=== PATIENT | male | born 1940 | race Caucasian/White ===

== ENCOUNTER 2016-04-23 07:01 | Outpatient (CLI) | payer MEDICARE ==
[~2016-04-23] VITALS: Ht 177.8 cm; Wt 97.5 kg
[~2016-04-23 07:01] MED LIST: ALBUTEROL2.5 MG/3 M UPD; BAYER CHEWABLE81 MG PO; BENZONATATE200 MG PO; BROVANA15 MCG/2 M INH; CARDURA2 MG PO; CARDURA4 MG PO; CORDARONE200 MG PO; DIFLUCAN100 MG PO; FLORAJEN3 CAPS460 MG PO; FLUTICASONE PRO16 GM NASAL; GLUCOTROL 5 MG T5 MG PO; HUMULIN R100 U/ML SC; MIRAPEX1 MG PO; MOBIC7.5 MG PO; NORVASC5 MG PO; NYSTATIN15 GM TOPICAL; OXYCODONE HCL5 MG PO; PACERONE200 MG PO; PREDNISONE20 MG PO; PRILOSEC20 MG PO; PRINIVIL10 MG PO; PRINIVIL20 MG PO; PROSCAR5 MG PO; PULMICORT0.5 MG/21 UPD; SINGULAIR10 MG PO; VIBRAMYCIN 100100 MG PO; ZYRTEC10 MG PO
[2016-04-23] MEDS ORDERED: PROPAFENONE HC150 MG PO (07:54)
[2016-04-23 08:03] VITALS: BP 170/100; Ht 177.8 cm; Wt 97.5 kg
[2016-04-23 08:11] LABS: BASOPHILS 0.7 % (0.0-2.0); EOSINOPHILS 6.7 % (0-7); HEMATOCRIT 34.4 % (42.0-54.0); HEMOGLOBIN 11.2 g/dL (13.5-17.5); IMMATURE GRANULOCYTES 0.3 % (0-5); LYMPHOCYTES 24.1 % (15-50); MCH 28.4 pg (26.0-34.0); MCHC 32.6 g/dL (31.0-37.0); MCV 87.3 fL (80.0-100.0); MEAN PLATELET VOLUME 9.2 fL (7.4-10.4); MONOCYTES 8.7 % (2-11); NEUTROPHILS 59.5 % (40-80); RBC 3.94 10x6/uL (4.20-6.10); RDW 13.3 % (11.5-14.5); WBC 6.7 10x3/uL (4.8-10.8)
[2016-04-23 08:23] LABS: ANION GAP 12.2 mmol/L (8-16); CALCIUM 8.7 mg/dL (8.5-10.1); CARBON DIOXIDE 24.9 mmol/L (21.0-32.0); CREATININE - SERUM 2.8 mg/dL (0.6-1.3); PLATELET COUNT 205 10x3/uL (130-400); POTASSIUM - SERUM 4.1 mmol/L (3.5-5.1)
[2016-04-23 08:24] LABS: APTT 29.2 SECONDS (22.8-39.4); INR 1.03 (0.85-1.17); PROTIME 13.3 SECONDS (11.6-15.0)
--- NOTE | 2016-04-23 10:27 | NUR ---
0910 RETURNED FROM RADIOLOGY; BIOPSY SITE CDI;V/S MONITOR IN PALCE AND V/S RECORDED
--- NOTE | 2016-04-23 11:25 | NUR ---
1110 DISCHARGE INSTRUCTIONS REVIEWED WITH PATIENT; VERBALIZED UNDERSTANDING
== END 2016-04-23 11:15 | disposition home or self-care (01) ==
LOC: D.OPS 07:01 → D.SP 09:00 → D.OPS 11:15 → D.SP 04-26 10:00
PROVIDERS: Specialist
DX: D64.9 Anemia, unspecified (principal); D84.9 Immunodeficiency, unspecified

== ENCOUNTER → 2016-05-11 10:15 | Outpatient (CLI) | payer MEDICARE ==
[2016-04-23 08:03] VITALS: BMI 30.9
[~2016-05-11 10:15] MED LIST changes: +PROPAFENONE HC150 MG PO
== END | disposition home or self-care (01) ==
LOC: D.RAD 08:45
DX: C90.00 Multiple myeloma not having achieved remission (principal)

== ENCOUNTER 2016-05-16 09:10 | Outpatient (CLI) | payer MEDICARE ==
[~2016-05-16] VITALS: Ht 177.8 cm; Wt 97.7 kg
[2016-05-16 09:58] LABS: BASOPHILS 0.8 % (0.0-2.0); EOSINOPHILS 3.5 % (0-7); HEMATOCRIT 35.4 % (42.0-54.0); HEMOGLOBIN 11.5 g/dL (13.5-17.5); IMMATURE GRANULOCYTES 0.2 % (0-5); LYMPHOCYTES 23.7 % (15-50); MCHC 32.5 g/dL (31.0-37.0); MCV 86.1 fL (80.0-100.0); MEAN PLATELET VOLUME 9.6 fL (7.4-10.4); MONOCYTES 7.3 % (2-11); NEUTROPHILS 64.5 % (40-80); PLATELET COUNT 192 10x3/uL (130-400); RBC 4.11 10x6/uL (4.20-6.10); RDW 14.1 % (11.5-14.5); WBC 6.6 10x3/uL (4.8-10.8)
[2016-05-16 10:08] VITALS: BP 152/90; Ht 177.8 cm; Wt 97.7 kg
[2016-05-16 10:18] LABS: APTT 28.8 SECONDS (22.8-39.4); INR 0.98 (0.85-1.17); PROTIME 12.9 SECONDS (11.6-15.0)
[2016-05-16 10:23] LABS: ANION GAP 14.3 mmol/L (8-16); CALCIUM 8.7 mg/dL (8.5-10.1); CARBON DIOXIDE 24.8 mmol/L (21.0-32.0); CREATININE - SERUM 2.6 mg/dL (0.6-1.3); POTASSIUM - SERUM 5.1 mmol/L (3.5-5.1)
== END 2016-05-16 15:33 | disposition home or self-care (01) ==
LOC: D.OPS 09:10 → D.RAD 10:00 → D.OPS 10:00 → D.SP 10:00 → D.RAD 11:00 → D.OPS 15:33
PROVIDERS: Internal Medicine Hematology & Oncology; Radiology Diagnostic Radiology
DX: N26.9 Renal sclerosis, unspecified (principal); I12.9 Hypertensive chronic kidney disease with stage 1 through stage 4 chronic kidney disease, or unspecified chronic kidney disease; N18.9 Chronic kidney disease, unspecified

== ENCOUNTER → 2016-06-13 08:29 | Outpatient (CLI) | payer MEDICARE ==
[2016-05-16 10:08] VITALS: BMI 30.9
--- NOTE | 2016-06-19 14:38 | EC ---
PATIENT:ANNA LANTIGUA JR DATE OF SERVICE: 06/13/16 SEX: M MEDICAL RECORD: [id number] DATE OF : 38 LOCATION:[facility] AGE OF PATIENT: 76 ADMISSION DATE: 06/13/16 REFERRING PHYSICIAN: INTERPRETING PHYSICIAN: RAN SCHUMACHER MD ECHOCARDIOGRAM REPORT ECHO CHARGES 4 ECHO COMPLETE CLINICAL DIAGNOSIS: CATLEMANS DISEASE/SOB/PRE CHEMO ASSESSMENT HX OF PACER/AFIB/HTN ECHOCARDIOGRAPHIC MEASUREMENTS (adult normal given) AC root (d.<3.7cm) 4.5 LV Septum d (<1.2 cm> 1.5 Valve Excursion 1.9 LV Septum (systole) 2.3 Left Atria (s.<4.0cm> 4.7 LVPW d(<1.2cm) 1.8 RV (d.<2.3cm) 3.5 LVPW (sytole) 2.0 LV diastole(<5.6CM) 4.8 MV E-F(>70mm/sec) LV systole 2.8 LVOT Diameter 2.2 MV exc.(>10mm) 1.5 Est.ejection fraction (50-75%) Pericardial Effusion N DOPPLER: LVIT A 74.0 E 49.0 LA RVSP 30 LVOT 122 AOP1/2T 495 Asc. Ao 146 RVOT 75 RA PA 115 AV Gradient Peak 8.49 AV Mean 3.95 AV Area 3.7 MV Gradient Peak 3.55 MV Mean 0.83 MV Area COMMENTS: Data Migration Lead: Cara ROBERTSON Investment Fund Manager:Yuko Schumacher TAPE# PACS DATE OF SERVICE: 06/13/2016 FINDINGS: 1. Left ventricular chamber size is within normal limits. Left ventricular systolic function is normal. Overall ejection fraction estimated at 55%. 2. Left atrium is enlarged at 4.7 cm. Right atrium and right ventricular chamber sizes are as well mildly dilated. 3. Valvular structures have normal structure and motion. 4. Doppler interrogation reveals mild aortic insufficiency, mild mitral ECHOCARDIOGRAM REPORT [id number] ANNA LANTIGUA JR regurgitation, mild tricuspid regurgitation. No other valvular insufficiency or stenosis and pulmonary systolic pressure is normal estimated 30 mmHg. 5. No evidence of pericardial effusion or left ventricular thrombus. TRANSINT:[id number] Voice Confirmation ID: [id number] DOCUMENT ID: [id number] RAN SCHUMACHER MD at 1438 CC: [id number] DICTATION DATE: 06/13/16 1704 RESEARCH BIOSTATISTICIAN: 06/14/16 0850 DEP CLI 06/13/16 [id number] [place] [address]
== END | disposition home or self-care (01) ==
LOC: D.ECHO 08:29
DX: D47.Z2 Castleman disease (principal)

== ENCOUNTER → 2016-06-15 13:56 | Outpatient (CLI) | payer MEDICARE ==
[2016-05-16 10:08] VITALS: BMI 30.9
== END | disposition home or self-care (01) ==
LOC: D.CT 13:56
DX: N18.4 Chronic kidney disease, stage 4 (severe) (principal)

== ENCOUNTER 2016-08-29 18:32 | Emergency (ER) | payer MEDICARE ==
[2016-05-16 10:08] VITALS: BMI 30.9
[2016-08-29 19:52] LABS: BASOPHILS 1.2 % (0-2); EOSINOPHILS 9.2 % (0-7); HEMATOCRIT 37.3 % (42.0-54.0); IMMATURE GRANULOCYTES 0.3 % (0-5); LYMPHOCYTES 39.5 % (15-50); MCH 29.3 pg (26.0-34.0); MCHC 32.2 g/dL (31.0-37.0); MCV 91.2 fL (80.0-100.0); MEAN PLATELET VOLUME 10.9 fL (7.4-10.4); MONOCYTES 10.1 % (2-11); NEUTROPHILS 39.7 % (40-80); RBC 4.09 10x6/uL (4.20-6.10); RDW 18.4 % (11.5-14.5); WBC 3.4 10x3/uL (4.8-10.8)
[2016-08-29 20:09] LABS: PLATELET COUNT 132 10x3/uL (130-400)
[2016-08-29 20:13] LABS: ALBUMIN 3.1 g/dL (3.4-5.0); ANION GAP 15.4 mmol/L (8-16); BILIRUBIN - TOTAL 0.53 mg/dL (0.2-1.3); CALCIUM 8.1 mg/dL (8.5-10.1); CARBON DIOXIDE 20.9 mmol/L (21.0-32.0); CREATININE - SERUM 2.5 mg/dL (0.6-1.3); POTASSIUM - SERUM 4.3 mmol/L (3.5-5.1); PROTEIN - SERUM 5.7 g/dL (6.4-8.2)
== END 2016-08-29 22:20 | disposition home or self-care (01) ==
LOC: D.ER 18:32
PROVIDERS: Emergency Medicine
DX: M79.661 Pain in right lower leg (principal); I82.90 Acute embolism and thrombosis of unspecified vein; I10 Essential (primary) hypertension

== ENCOUNTER → 2016-09-26 12:30 | Outpatient (CLI) | payer MEDICARE ==
[2016-05-16 10:08] VITALS: BMI 30.9
== END | disposition home or self-care (01) ==
LOC: D.US 12:30
DX: I82.401 Acute embolism and thrombosis of unspecified deep veins of right lower extremity (principal); R60.0 Localized edema

== ENCOUNTER 2017-01-07 06:10 | Outpatient (CLI) | payer MEDICARE ==
[2017-01-07] MEDS ORDERED: BETAPACE AF80 MG PO (07:03)
[2017-01-07] MEDS ORDERED: OMEPRAZOLE20 M1 PO (07:06)
[2017-01-07] MEDS ORDERED: [UNRECOGNIZED DRUG - OTHER] PO (07:08)
[2017-01-07 07:15] VITALS: BP 122/62; BMI 28.6
[2017-01-07 07:24] LABS: BASOPHILS 2.9 % (0-2); EOSINOPHILS 8.8 % (0-7); HEMATOCRIT 33.4 % (42.0-54.0); LYMPHOCYTES 36.8 % (15-50); MCH 31.4 pg (26.0-34.0); MCHC 32.9 g/dL (31.0-37.0); MCV 95.4 fL (80.0-100.0); MEAN PLATELET VOLUME 9.6 fL (7.4-10.4); MONOCYTES 18.7 % (2-11); NEUTROPHILS 32.8 % (40-80); RDW 18.6 % (11.5-14.5)
[2017-01-07 07:40] LABS: ANION GAP 13.8 mmol/L (8-16); CALCIUM 8.3 mg/dL (8.5-10.1); CARBON DIOXIDE 22.2 mmol/L (21.0-32.0); CREATININE - SERUM 2.2 mg/dL (0.6-1.3); PLATELET COUNT 78 10x3/uL (130-400); WBC 1.7 10x3/uL (4.8-10.8)
[2017-01-07 07:42] LABS: APTT 27.4 SECONDS (22.8-39.4); INR 1.02 (0.85-1.17); PROTIME 13.3 SECONDS (11.6-15.0)
--- NOTE | 2017-01-07 10:40 | NUR ---
0920-RECD FROM I/R POST CT GUIDED BONE MARROW BIOPSY. VITAL SIGNS RECORDED ON POST PROCEDURE SHEET. 0930-REGULAR BREAKFAST SERVED. REVERSE ISOLATION FOLLOWED DUE TO LOW WBC. FAMILY EDUCATIED. 1005-IV D/C, UP TO BATHROOM AND DRESSING. 1015-DISCHARGE INSTRUCTIONS REVIEWED. 1030-D/C VIA WHEELCHAIR WITH AND DAUGHTER.
== END 2017-01-07 10:30 | disposition home or self-care (01) ==
LOC: D.OPS 06:10 → D.RAD 07:45 → D.OPS 07:45 → D.CT 08:00 → D.OPS 10:30
PROVIDERS: General Practice
DX: C90.00 Multiple myeloma not having achieved remission (principal); Z01.812 Encounter for preprocedural laboratory examination

== ENCOUNTER → 2017-03-11 12:48 | Outpatient (CLI) | payer MEDICARE ==
[~2017-03-11 12:48] MED LIST changes: +BETAPACE AF80 MG PO; +OMEPRAZOLE20 M1 PO; +[UNRECOGNIZED DRUG - OTHER] PO
== END | disposition home or self-care (01) ==
LOC: D.RT 12:48
DX: R91.1 Solitary pulmonary nodule (principal)

== ENCOUNTER → 2017-06-03 13:33 | Outpatient (CLI) | payer MEDICARE | END | disposition home or self-care (01) | LOC: D.US 13:33 | DX: E05.90 Thyrotoxicosis, unspecified without thyrotoxic crisis or storm (principal) ==

== ENCOUNTER → 2017-07-11 09:50 | Outpatient (CLI) | payer MEDICARE | END | disposition home or self-care (01) | LOC: D.NM 09:50 | DX: E04.1 Nontoxic single thyroid nodule (principal) ==

== ENCOUNTER → 2017-08-16 11:25 | Outpatient (CLI) | payer MEDICARE | END | disposition home or self-care (01) | LOC: D.RAD 11:25 | DX: C90.00 Multiple myeloma not having achieved remission (principal); E85.89 Other amyloidosis; D63.1 Anemia in chronic kidney disease ==

== ENCOUNTER → 2017-09-30 12:23 | Outpatient (CLI) | payer MEDICARE | END | disposition home or self-care (01) | LOC: D.RT 12:23 | DX: J84.10 Pulmonary fibrosis, unspecified (principal) ==

== ENCOUNTER 2018-04-18 08:59 | Outpatient (CLI) | payer MEDICARE ==
[~2018-04-18] VITALS: Ht 177.8 cm; Wt 90.9 kg
--- NOTE | ~2018-04-18 | HEMODYNAMI ---
PATIENT:ANNA LANTIGUA JR MEDICAL RECORD: [id number] : 38 [id number] ADMISSION DATE: 04/18/18 Generatedon:04/18/201813:16 Patient name: ANNA LANTIGUA Patient #: [id number] SSN: : 1940 Date of study: 04/18/2018 Page: Of Hemodynamic Procedure Report Patient Data Patient Demographics Procedure consent was obtained First Name: ANNA Gender: Male Last Name: Suffix: [facility] Initial: N : 1940 Patient #: [id number] Age: 77 year(s) Race: Unknown Additional ID: [id number] Contact details [address]: [address] [place] [address] ROAD State: [place] City: [place] Zip code: [address] Past Medical History Allergies Allergen Reaction Date Comments Reported Sulfa drugs 04/18/2018 Admission Admission Data Admission Date: 04/18/2018 Admission Time: 8:59 Procedure Procedure Types Cath Procedure Peripheral Cath Diagnostic Procedure Security Professional Peripheral Procedures Abd/Extremity Extremities Bilat Lower Extremity Venography Procedure Description Procedure Date Procedure Date: 04/18/2018 Procedure Start Time: 12:27 Procedure Staff Name Function Koffi Meyers MD Performing Physician Lashaun Barakat RT Experimental Rocket Sled Mechanic Yisel Hopkins RN Nurse Juve Joseph RT Scrub Procedure Data Cath Procedure Fluoroscopy Diagnostic fluoroscopy Total fluoroscopy Time: 6.8 time: 6.8 min min Diagnostic fluoroscopy Total fluoroscopy dose: 534 dose: 534 mGy mGy Contrast Material Contrast Material Type Amount (ml) Isovue 300 10 Diagnostic catheters Device Type Used For End Catheter Placement DIAGNOSTIC IMT 5Fr Catheter ([id number]) Procedure Medications Medication Administration Route Dosage Lidocaine 1% added to field 20 Heparin Flush Bag added to field 3 bags (1000units/500ml NS) Oxygen etCO2 Nasal cannula 3 l/min Versed I.V. 1 mg Fentanyl I.V. 50 mcg Hemodynamics Rest Heart Rate: 70 (bpm) Snapshots Pre Cath Intra NCS Post Cath Vital Signs Time Heart Resp SPO2 etCO2 NIBP (mmHg) Rhythm Pain Sedation Rate (ipm) (%) (mmHg) Status Level (bpm) 12:02:11 59 7 97 28.8 164/91(136) NSR 0 (11) 10(A) , No pain 12:06:23 60 10 98 31.9 159/86(126) NSR 0 (11) 10(A) , No pain 12:11:22 61 15 97 30.4 Measuring NSR 0 (11) 10(A) , No pain 12:12:46 60 14 98 29.6 Time NSR 0 (11) 10(A) Exceeded , No pain 12:15:44 59 16 95 30.3 No Cuff NSR 0 (11) 9(A) , No pain 12:16:25 60 13 96 31.8 No Cuff NSR 0 (11) 9(A) , No pain 12:19:13 62 14 96 30.3 Aborted NSR 0 (11) 9(A) , No pain 12:20:59 60 12 96 31.1 154/86(103) NSR 0 (11) 9(A) , No pain 12:25:24 60 16 96 29.6 159/86(113) NSR 0 (11) 9(A) , No pain 12:29:42 60 22 95 32.6 148/79(99) NSR 0 (11) 8(A) , No pain 12:34:02 62 12 100 34.2 133/78(99) NSR 0 (11) 8(A) , No pain 12:38:16 63 10 100 33.4 130/80(98) NSR 0 (11) 8(A) , No pain 12:42:32 60 19 100 31.1 133/73(93) NSR 0 (11) 8(A) , No pain 12:46:46 55 12 100 32.6 126/71(97) NSR 0 (11) 8(A) , No pain 12:50:58 59 12 100 32.6 127/76(100) NSR 0 (11) 8(A) , No pain 12:55:12 59 12 100 31.1 129/73(87) NSR 0 (11) 8(A) , No pain 12:59:24 38 23 100 31.8 138/80(115) NSR 0 (11) 8(A) , No pain 13:03:38 63 15 100 28.1 131/78(97) NSR 0 (11) 8(A) , No pain 13:07:52 60 13 100 31.8 136/78(91) NSR 0 (11) 8(A) , No pain 13:12:08 60 13 100 30.3 134/79(91) NSR 0 (11) 8(A) , No pain Medications Time Medication Route Dose Verified Delivered Reason Notes Eff ectiveness by by 12:08:47 Lidocaine 1% added 20ml Koffi Rain for local to vial Mira Meyers anesthetic field MD MIRANDA 12:09:02 Heparin Flush added 3 Koffi Rain used for Bag to bags Mira Meyers procedure (1000units/500ml field MD MIARNDA NS) 12:09:16 Oxygen etCO2 3 Koffi Morillo Nasal l/min Mira Hopkins RN cannula 12:27:08 Versed I.V. 1 mg Koffi Morillo for Mira Hopkins RN sedation 12:27:19 Fentanyl I.V. 50 Koffi Yisel for mcg Mira Hopkins RN sedation Procedure Log Time Note 11:44:50 Use device set IR Diagnostic 11:44:52 Tegaderm 4 x 4 (1626W) opened to sterile field. 11:44:53 Sterile Angiographic Pack opened to sterile field. 11:44:54 Bag Decanter (2002S) opened to sterile field. 11:44:55 BENTSON 145cm wire ([id number]) opened to sterile field. 11:44:56 TUBING Contrast Injection High Pressure (VOG491O) opened to sterile field. 11:44:57 TUBING Contrast Injection High Pressure (GLH933X) opened to sterile field. 11:44:58 SHEATH 5FR [place] (MYL331) opened to sterile field. 11:44:59 STOPCOCK 3-Way Large Bore ([id number]) opened to sterile field. 11:44:59 Micropuncture VSI 4FR kit opened to sterile field. 11:49:41 Time tracking: Regular hours (M-F 7:00 - 5:00) 11:54:06 Plan of Care:Hemodynamics will remain stable., Cardiac rhythm will remain stable., Comfort level will be maintained., Respiratory function will remain adequate., Patient/ family verbilizes understanding of procedure., Procedure tolerated without complication., Recovers from procedure without complications.. 11:54:15 Patient received from Outpatients to IR Alert and oriented. Tansferred to table in Supine position. 11:54:20 Signed procedure consent form obtained from patient. 11:54:40 H&P Date Dictated: 04/18/2018 Within 30 days and on chart.. 11:54:45 Pre-procedure instructions explained to patient. 11:54:46 Pre-op teaching completed and patient verbalized understanding. 11:54:47 Pre-op teaching completed and patient verbalized understanding. 11:54:55 Family in waiting room. 11:54:58 Patient NPO since Midnight. 11:55:24 Patient allergic to Sulfa drugs,amiodrone, reglan 11:56:21 Is the patient allergic to Iodine/contrast media? No. 11:56:24 Is patient on blood thinner?Yes 11:56:29 ACC The patient was administered the following blood thiners within the last 24 hours: ACCAspirin 11:56:34 Patient diabetic? No. 11:56:36 - 11:56:36 ----Pre-sedation anethsthesia assessment.---- 11:56:40 Previous problem with sedation/anesthesia? No ? 11:56:46 Snore? Yes 11:56:48 Sleep apnea? Yes 11:56:52 Deviated septum? No 11:56:56 Opens mouth fully? Yes 11:56:58 Sticks out tongue? Yes 11:57:02 Airway obstruction? No ? 11:57:08 Dentures? Yes ? 11:57:11 - 11:57:18 Pre procedure: right dorsailis pedis pulse Doppler 11:57:22 Pre procedure: left dorsailis pedis pulse Doppler 11:57:27 Pre procedure: right posterior tibial pulse Doppler 11:57:32 Pre procedure: left posterior tibial pulse Doppler 11:57:48 IV patent on arrival in left forearm with D5/.45%NaCl at KVO. 11:57:55 Right groin area was prepped with chlora-prep and draped in sterile fashion 11:58:05 Left groin area was prepped with chlora-prep and draped in sterile fashion 11:58:13 - 12:00:58 ECG and BP/O2 sat monitors applied to patient. 12:01:00 Vital chart was started 12:01:02 Full Disclosure recording started 12:01:03 - 12:01:54 Baseline sample Acquired. 12:08:47 Lidocaine 1% 20ml vial added to field was administered by Koffi pereyra MD; for local anesthetic; 12:09:02 Heparin Flush Bag (1000units/500ml NS) 3 bags added to field was administered by Koffi Meyers MD; used for procedure; 12:09:16 Oxygen 3 l/min etCO2 Nasal cannula was administered by Yisel Hopkins RN ; ; 12:26:00 - 12::15 Physician arrived 12:26:16 --------ALL STOP TIME OUT------ 12:26:17 Final Timeout: patient, procedure, and site verified with staff and physician. All members of the team are in agreement. 12:27:08 Versed 1 mg I.V. was administered by Yisel Hopkins RN; for sedation; 12:27:19 Fentanyl 50 mcg I.V. was administered by Yisel Hopkins RN; for sedation ; 12:27:35 Procedure started. 12:27:40 Local anesthetic to right femoral artery with Lidocaine 1% by Koffi Meyers MD.INITIAL ACCESS ONLY 12:27:44 Arterial access obtained using ultrasound guidance. 12:49:31 A DIAGNOSTIC IMT 5Fr Catheter ([id number]) was advanced over the wire an d used for . 13:02:28 GALVEZ 260 wire (Z66469) opened to sterile field. 13:03:09 EXOSEAL 5Fr (EX500) opened to sterile field. 13:04:59 Procedure ended.(Physican Out) 13:05:29 Fluoroscopy time 06.80 minutes. 13:05:35 Fluoroscopy dose: 534 mGy 13:05:35 Flurop Dose total: 534 13:05:39 Contrast amount:Isovue 300 10ml. 13:05:42 Procedure and supply charges have been captured, reviewed, submitted an d are correct. 13:16:03 Report given to Outpatients. 13:16:11 Patient transfered to Outpatients with Stretcher. 13:16:43 Vital chart was stopped Device Usage Item Name Manufacture Quantity Catalog Number Hospital Part Current Min imal Lot# / Charge Number Stock Stock Serial# Code Tegaderm 4 x 3M 1 1626W 192578 [id number] [id number] 5 4 (1626W) Sterile Cardinal 1 [id number] 261954 663018 5 Angiographic Health Pack Bag Decanter Microtek 1 2001S 807436 93650 234050 5 (2001S) Medical Inc. BENTSON 145cm [employer] 1 F58370 266105 737413 5 wire (Y16372) TUBING Merit 2 [id number] 136156 657465 753583 5 Contrast Medical Injection High Pressure (VDJ129Q) SHEATH 5FR Terumo 1 UAN390 899623 540230 168516 5 [place] (NIX459) STOPCOCK [employer] 1 A92140 521652 6507 570394 5 [id number] 3-Way Large Bore (E58040) Micropuncture VSI VASCULAR 1 7266V 098142 404188 5 VSI 4FR kit SOLUTIONS DIAGNOSTIC [place] 1 [id number] 147145 325869 14132 5 [id number] IMT 5Fr Scientific Catheter ([id number]) GALVEZ 260 [place] [employer] 1 Q77651 742587 66814 323704 5 [id number] wire (Y24511) EXOSEAL 5Fr Cardinal 1 EX500 605559 843760 894924 10 [id number] (EX500) Health Signature Audit [place] Stage Time Signature Unsigned Intra-Procedure 04/18/2018 Lashaun Barakat 1:16:37 PM RT(R) [id number] [place] [address]
[2018-04-18 09:31] LABS: BASOPHILS 0.6 % (0-2); EOSINOPHILS 2.9 % (0-7); HEMATOCRIT 35.5 % (42.0-54.0); HEMOGLOBIN 11.9 g/dL (13.5-17.5); LYMPHOCYTES 29.5 % (15-50); MCHC 33.5 g/dL (31.0-37.0); MCV 89.4 fL (80.0-100.0); MEAN PLATELET VOLUME 8.3 fL (7.4-10.4); RBC 3.97 10x6/uL (4.20-6.10); RDW 13.7 % (11.5-14.5); WBC 6.2 10x3/uL (4.8-10.8)
[2018-04-18 09:39] LABS: ANION GAP 12.7 mmol/L (8-16); CALCIUM 8.8 mg/dL (8.5-10.1); CARBON DIOXIDE 26.5 mmol/L (21.0-32.0); CREATININE - SERUM 2.3 mg/dL (0.6-1.3); POTASSIUM - SERUM 4.2 mmol/L (3.5-5.1)
[2018-04-18 09:40] LABS: INR 1.01 (0.85-1.17); PROTIME 12.8 SECONDS (11.6-15.0)
[2018-04-18 09:48] LABS: PLATELET COUNT 149 10x3/uL (130-400)
[2018-04-18] MEDS ORDERED: CARDIZEM LA240 MG PO (10:36)
[2018-04-18] MEDS ORDERED: BAYER CHEWABLE81 MG PO (10:37)
[2018-04-18 10:38] VITALS: BP 151/88; Ht 177.8 cm; Wt 90.9 kg
--- NOTE | 2018-04-18 17:15 | NUR ---
LEFT FOREARM PIV DC'D WITH TIP INTACT. DISCHARGE INSTRUCTIONS REVIEWED WITH PATIENT AND SPOUSE. PATIENT DRESSING IN PERSONAL CLOTHING WITH SPOUSE AND DAUGHTER'S ASSISTANCE
== END 2018-04-18 17:20 | disposition home or self-care (01) ==
LOC: D.SP 08:59
PROVIDERS: Radiology Diagnostic Radiology
DX: I70.213 Atherosclerosis of native arteries of extremities with intermittent claudication, bilateral legs (principal)

== ENCOUNTER → 2018-05-15 08:48 | Outpatient (CLI) | payer MEDICARE ==
[2018-04-18 10:38] VITALS: BMI 28.7
[~2018-05-15 08:48] MED LIST changes: +CARDIZEM LA240 MG PO
== END | disposition home or self-care (01) ==
LOC: D.RT 04-03 15:00 → D.CT 04-03 16:00 → D.RT 08:48
DX: J84.10 Pulmonary fibrosis, unspecified (principal)

== ENCOUNTER → 2018-12-11 12:11 | Outpatient (CLI) | payer MEDICARE ==
[2018-04-18 10:38] VITALS: BMI 28.7
== END | disposition home or self-care (01) ==
LOC: D.RT 12:11
PROVIDERS: ATTEND Internal Medicine Pulmonary Disease
DX: J84.10 Pulmonary fibrosis, unspecified (principal)

== ENCOUNTER → 2018-12-15 08:18 | Outpatient (CLI) | payer MEDICARE ==
[2018-04-18 10:38] VITALS: BMI 28.7
--- NOTE | 2018-12-16 13:38 | EC ---
PATIENT:ANNA LANTIGUA JR DATE OF SERVICE: 12/15/18 SEX: M MEDICAL RECORD: [id number] DATE OF : 38 [facility] AGE OF PATIENT: 78 ADMISSION DATE: 12/15/18 REFERRING PHYSICIAN: INTERPRETING PHYSICIAN: RAN SCHUMACHER MD ECHOCARDIOGRAM REPORT ECHO CHARGES 4 ECHO COMPLETE Date: 12/15/18 CLINICAL DIAGNOSIS: MYELOMA/CHEMO, HX: AFIB, HTN, COPD ECHOCARDIOGRAPHIC MEASUREMENTS (adult normal given) AC root (d.<3.7cm) 3.2 cm LV Septum d (<1.2 cm> 1.1 cm Valve Excursion 1.9 cm LV Septum (systole) 1.4 cm Left Atria (s.<4.0cm> 4.0 cm LVPW d(<1.2cm) 1.4 cm RV (d.<2.3cm) 3.7 cm LVPW (sytole) 1.6 cm LV diastole(<5.6CM) 6.7 cm MV E-F(>70mm/sec) cm LV systole 5.7 cm LVOT Diameter 2.1 cm MV exc.(>10mm) cm Est.ejection fraction (50-75%) % DOPPLER: LVIT cm/sec A 70 cm/sec E 36 cm/sec LA cm/sec RVSP 26.7 mmHg LVOT 94 cm/sec AOP1/2T m/s Asc. Ao 107 cm/sec RVOT 61 cm/sec RA cm/sec PA 65 cm/sec AV Gradient Peak 4.6 mmHg AV Mean 2.2 mmHg AV Area 3.2 cm MV Gradient Peak 2.5 mmHg MV Mean 1.0 mmHg MV Area cm COMMENTS: Senior Director Marketing: Hema TANG Retail Sales Lead: 1 Dr. Schumacher TAPE# PACS Pericardial Effusion N DATE OF SERVICE: 12/15/2018 PROCEDURE: Echocardiogram. FINDINGS: 1. Left ventricular chamber size is mildly dilated. Left ventricular systolic function is preserved at 55% to 60%. 2. Left atrium is within normal limits. Right atrium and right ventricular chamber sizes are mildly dilated. 3. Valvular structures have normal structure and motion. ECHOCARDIOGRAM REPORT [id number] ANNA LANTIGUA JR 4. Doppler interrogation reveals mild aortic insufficiency, mild mitral regurgitation, mild tricuspid regurgitation, no other valvular insufficiency or stenosis. Pulmonary systolic pressure is estimated at 27 mmHg. 5. No evidence of pericardial effusion or left ventricular thrombus. TRANSINT:[id number] Voice Confirmation ID: [id number] DOCUMENT ID: [id number] RAN SCHUMACHER MD at 1338 CC: [id number] DICTATION DATE: 12/15/18 1651 RECRUITMENT ADVERTISING MANAGER: 12/16/18 0126 DEP CLI 12/15/18 [id number] [place] [id number]
== END | disposition home or self-care (01) ==
LOC: D.ECHO 08:18
PROVIDERS: ATTEND Internal Medicine Medical Oncology
DX: I48.91 Unspecified atrial fibrillation (principal); I10 Essential (primary) hypertension; J44.9 Chronic obstructive pulmonary disease, unspecified

== ENCOUNTER → 2018-12-17 10:04 | Outpatient (CLI) | payer MEDICARE ==
[2018-04-18 10:38] VITALS: BMI 28.7
--- NOTE | 2018-12-19 12:08 | ST ---
PATIENT:ANNA LANTIGUA JR MEDICAL RECORD: [id number] SEX: M LOCATION:[facility] ORDER #: ADMISSION DATE: 12/17/18 AGE OF PATIENT: 78 REFERRING PHYSICIAN: INTERPRETING PHYSICIAN: RAN IQBAL MD DATE OF SERVICE: PROCEDURE: Nuclear stress test. INDICATIONS: Angina, hypertension, paroxysmal atrial fibrillation. He was exercised on standard Lexiscan protocol with 27 mCi of sestamibi injected at peak stress, 9 mCi used previously for rest images. FINDINGS: Gated SPECT reveals preserved ejection fraction at 58% with decreased thickening and brightening throughout the inferior segments. SPECT imaging: Cardiolite was used as myocardial perfusion agent. There is a fixed perfusion defect inferiorly and apically compatible with previous inferoapical myocardial infarction. There is no evidence of reversible ischemia. The remaining segments are with homogeneous uptake at rest and stress. OVERALL IMPRESSION: This is an abnormal nuclear stress test only in that shows a fixed perfusion defect inferiorly from a previous inferior myocardial infarction, no ongoing ischemic burden. TRANSINT:[id number] Voice Confirmation ID: [id number] DOCUMENT ID: [id number] RAN IQBAL MD at 1208 CC: NELLIE CHERRY [id number] DICTATION DATE: 12/18/18 1331 LANDSCAPE AND YARDWORK LABORER: 12/19/18 0758 [facility] CLI 12/17/18 [id number] [place] [address]
== END | disposition home or self-care (01) ==
LOC: D.HCCARDIO 10:04 → D.HCCECHO 12-22 10:00
PROVIDERS: ATTEND Internal Medicine Interventional Cardiology
DX: I20.9 Angina pectoris, unspecified (principal)

== ENCOUNTER → 2019-04-17 09:58 | Outpatient (CLI) | payer MEDICARE ==
[~2019-04-17] VITALS: Ht 177.8 cm; Wt 93.2 kg
--- NOTE | ~2019-04-17 | HEMODYNAMI ---
PATIENT:ANNA LANTIGUA JR MEDICAL RECORD: [id number] : 38 LOCATION:D.CAT ADMISSION DATE: 04/17/19 Generatedon:04/17/201913:27 Patient name: ANNA LANTIGUA Patient #: [id number] SSN: : 1940 Date of study: 04/17/2019 Page: Of Hemodynamic Procedure Report Patient Data Patient Demographics Procedure consent was obtained First Name: ANNA Gender: Male Last Name: Suffix: [facility] Initial: Tamiko : 1940 Patient #: [id number] Age: 78 year(s) Race: Unknown Additional ID: [id number] Contact details Address: [address] [place] [address] ROAD State: [place] City: [place] Zip code: [address] Past Medical History Allergies Allergen Reaction Date Comments Reported Sulfa drugs 04/18/2018 Other allergy 04/17/2019 SULFA, AMIODARONE, REGLAN Admission Admission Data Admission Date: 04/17/2019 Admission Time: 9:58 Arrival Date: 04/17/2019 Arrival Time: 0:00 Admit Source: Emergency department Height (in.): 70 BSA: 2.11 (m2) Height (cm.): 177.8 BMI: 29.42 (kg/m2) Weight (lbs.): 205.03 Weight (kg.): 93 Lab Results Lab Result Date: 04/17/2019 Lab Result Time: 0:00 Biochemistry Name Units Result Min Max BUN mg/dl 40 --(----)-* 7 18 Creatinine mg/dl 2.3 --(----)-* 0.6 1.3 eGFR ml/min 29 *-(----)-- 90 120 NONAFRICAN CBC Name Units Result Min Max Hematocrit % 34.8 *-(----)-- 42 54 Hemoglobin g/dl 11.4 *-(----)-- 13.5 17.5 Procedure Procedure Types Cath Procedure Diagnostic Procedure LHC LHC w/Coronaries FFR/IVUS FFR Initial Sedation Charges Moderate Sedation up to 15 minutes PCI Procedure Coronary Stent Coronary Stent Initial x2 Hemochron ACT Test Procedure Description Procedure Date Procedure Date: 04/17/2019 Procedure Start Time: 13:03 Procedure End Time: 13:22 Procedure Staff Name Function Elmer Schumacher MD Performing Physician Dalila Nina RT Monitor Lexie Coto RT Scrub Jonathan Arrieta RN Nurse Procedure Data Cath Procedure Fluoroscopy Diagnostic fluoroscopy Total fluoroscopy Time: 6 time: 6 min min Diagnostic fluoroscopy Total fluoroscopy dose: 713 dose: 713 mGy mGy Contrast Material Contrast Material Type Amount (ml) Isovue 300 68 Entry Location Entry Primary Successful Side Size Upsize Upsize Entry Closure Trejo ccessful Closure Location (Fr) 1 (Fr) 2 (Fr) Remarks Device Remarks Radial Right 6 Fr Mechanical artery Short Compression Estimated blood loss: 10 ml Diagnostic catheters Device Type Used For End Catheter Placement DIAGNOSTIC [place] 110cm 5 Procedure Fr catheter ([id number]) Procedure Complications No complications Procedure Medications Medication Administration Route Dosage 0.9% NaCl I.V. 100 ml/hr Oxygen etCO2 Nasal cannula 2 l/min Heparin Flush Bag added to field 2 bags (1000units/500ml NS) Lidocaine 2% added to field 20 Radial Cocktail added to field 1 syringe (Verapamil 2mg/Nitro 400mcg/Heparin 1500units) Versed I.V. 1 mg Fentanyl I.V. 50 mcg Radial Cocktail I.A. 1 syringe (Verapamil 2mg/Nitro 400mcg/Heparin 1500units) Heparin Bolus I.V. 4000 units Integrilin (Bolus I.V. 8.5 ml 2mg/ml) Integrilin (Bolus wasted 1.5 ml 2mg/ml) Plavix P.O. 600 mg Hemodynamics Rest BSA: 2.11 (m2) HGB: 11.4 (g/dl) O2 Consumption: Estimated: 233.01 (ml/min) O2 Co nsumption indexed: Estimated:110.43 (ml/min/m) Heart Rate: 60 (bpm) Snapshots Pre Cath Intra NCS Post Cath Vital Signs Time Heart Resp SPO2 etCO2 NIBP (mmHg) Rhythm Pain Sedation Rate (ipm) (%) (mmHg) Status Level (bpm) 12:55:13 60 14 97 29.2 155/84(129) NSR 0 (11) 10(A) , No pain 12:59:27 60 13 97 0 136/73(112) NSR 0 (11) 10(A) , No pain 13:03:47 60 12 96 27 135/68(109) NSR 0 (11) 10(A) , No pain 13:08:03 60 12 94 27 112/62(85) NSR 0 (11) 9(A) , No pain 13:12:13 63 12 94 30 122/71(93) NSR 0 (11) 9(A) , No pain 13:16:27 60 13 96 29.2 134/77(110) NSR 0 (11) 9(A) , No pain 13:20:45 60 14 96 22.5 136/74(116) NSR 0 (11) 10(A) , No pain Medications Time Medication Route Dose Verified Delivered Reason Not es Effectiveness by by 12:56:34 0.9% NaCl I.V. 100 Jonathan Jonathan Per physician ml/hr Meenakshi Arrieta RN RN 12:56:47 Oxygen etCO2 2 l/min Jonathan Jonathan for low 02 sats Nasal Lorigan Lorsanta cannula RN RN 12:56:57 Heparin Flush added 2 bags Jonathan Jonathan used for Bag to Lorigan Meenakshi procedure (1000units/500ml field RN RN NS) 12:57:07 Lidocaine 2% added 20ml Jonathan Jonathan for local to vial Lorigan Lorigan anesthetic RN RN 12:57:17 Radial Cocktail added 1 Jonathan Jonathan used for (Verapamil to syringe Lorigan Lorigan procedure 2mg/Nitro field RN RN 400mcg/Heparin 1500units) 13:02:52 Versed I.V. 1 mg Jonathan Jonathan for sedation Meenakshi Arrieta RN RN 13:03:01 Fentanyl I.V. 50 mcg Jonathan Jonathan for sedation Meenakshi Arrieta RN RN 13:04:16 Radial Cocktail I.A. 1 Jonathan Elmer for (Verapamil syringe Meenakshi Schumacher MD vasodilation 2mg/Nitro RN 400mcg/Heparin 1500units) 13:11:23 Heparin Bolus I.V. 4000 Jonathan Jonathan for units Meenakshi Arrieta anticoagulation RN RN 13:11:39 Integrilin I.V. 8.5 ml Jonathan Jonathan for (Bolus 2mg/ml) Meenakshi Arrieta antiplatelet RN RN therapy 13:11:51 Integrilin wasted 1.5 ml Jonathan Jonathan to sharp's (Bolus 2mg/ml) Meenakshi Arrieta RN RN 13:22:15 Plavix P.O. 600 mg Jonathan Jonathan for Meenakshi Arrieta antiplatelet RN RN therapy Procedure Log Time Note 12:31:05 Informed consent obtained and on chart 12:31:35 Procedure Status Urgent Heart Cath (IP). 12:31:40 Time tracking: Regular hours (M-F 7:00 - 5:00) 12:31:42 Plan of Care:Hemodynamics will remain stable., Cardiac rhythm will remain stable., Comfort level will be maintained., Respiratory function will remain adequate., Patient/ family verbilizes understanding of procedure., Procedure tolerated without complication., Recovers from procedure without complications.. 12:31:43 Jonathan Arrieta RN sent for patient. Start room use. 12:31:47 H&P Date Dictated: 04/17/2019 ER History on chart.. 12:33:28 Patient allergic to Other allergySULFA, AMIODARONE, REGLAN 12:33:45 Patient Weight : 205.03 lbs 12:33:48 Patient Height : 70 inches 12:33:52 Admit Source: Emergency department 12:33:55 Arrival Date: 04/17/2019 12:00:00 AM 12:37:25 Lab Result : Hemoglobin 11.4 g/dl 12:37:25 Lab Result : eGFR NONAFRICAN 29 ml/min 12:37:25 Lab Result : BUN 40 mg/dl 12:37:25 Lab Result : Creatinine 2.3 mg/dl 12:37:25 Lab Result : Hematocrit 34.8 % 12:44:42 Patient received from ED to CCL 1 Alert and oriented. Tansferred to table in Supine position. 12:44:43 Warm blankets applied, and zina hugger turned on for patient comfort. 12:44:44 Correct patient and procedure confirmed by team. 12:44:44 ECG and BP/O2 sat monitors applied to patient. 12:54:03 Vital chart was started 12:54:12 Baseline sample Acquired. 12:54:17 Rhythm: sinus rhythm 12:54:18 Full Disclosure recording started 12:54:18 Pre-procedure instructions explained to patient. 12:54:19 Pre-procedure instructions explained to patient. 12:54:20 Family in patients room. 12:54:22 Patient NPO since Midnight. 12:54:23 Is patient on blood thinner?No 12:54:25 Patient diabetic? No. 12:54:41 Previous problem with sedation/anesthesia? No ? 12:54:43 Snore? Yes 12:54:44 Sleep apnea? No 12:54:46 Deviated septum? No 12:54:46 Opens mouth fully? Yes 12:54:47 Sticks out tongue? Yes 12:54:58 Airway obstruction? Yes ASBESTOSIS, EMPHYSEMA 12:55:01 Dentures? No ? 12:55:03 Pre procedure: right dorsailis pedis pulse 1+ Palpable, but thready & weak; easily obliterated 12:55:06 Modified Ish's test Ulnar < 7 seconds 12:55:09 Patient pain scale 0/10 ?. 12:55:13 IV patent on arrival in right antecubital with 0.9% NaCl at O. 12:55:15 Lab results completed and on chart. 12:55:18 Stress Test: no; N/A ? 12:55:21 Right Radial & Right Groin area was prepped with chlora-prep and draped in sterile fashion 12:55:23 Alarms reviewed by R. N. 12:55:24 Sharps counted by scrub and verified by R.N. 12:56:34 0.9% NaCl 100 ml/hr I.V. was administered by Jonathan Arrieta RN; Per physician; Verbal order read back and verified. 12:56:47 Oxygen 2 l/min etCO2 Nasal cannula was administered by Jonathan Arrieta RN; for low 02 sats; Verbal order read back and verified. 12:56:57 Heparin Flush Bag (1000units/500ml NS) 2 bags added to field was administered by Jonathan Arrieta RN; used for procedure; Verbal order read back and verified. 12:57:07 Lidocaine 2% 20ml vial added to field was administered by Jonathan Arrieta RN; for local anesthetic; Verbal order read back and verified. 12:57:17 Radial Cocktail (Verapamil 2mg/Nitro 400mcg/Heparin 1500units) 1 syringe added to field was administered by Jonathan Arrieta RN; used for procedure; Verbal order read back and verified. 12:58:02 Risk of Mortality: .8 12:58:06 Risk of blood transfusion: 1.2 12:58:12 Risk of BETITO: 6 12:58:15 Use device set Radial Dx or PCI 12:58:16 ACIST Syringe (99269) opened to sterile field. 12:58:17 Medline Cath Pack ([id number]) opened to sterile field. 12:58:19 Bag Decanter (2002S) opened to sterile field. 12:58:19 ACIST Hand Control (86767) opened to sterile field. 12:58:20 ACIST Manifold (67817) opened to sterile field. 12:58:20 Tegaderm 4 x 4 (1626W) opened to sterile field. 12:58:22 MBrace Wrist Support ([id number]) opened to sterile field. 12:58:24 EMERALD Guide Wire (480-262) opened to sterile field. 12:58:24 SHEATH 6FR RAIN (2890899) opened to sterile field. 12:59:51 ACC Patient presents with Stable Angina CCS Anginal Class 3--Marked limitation of physical activity, angina occurs with ordinary activity.. 13:01:23 Zero performed for pressure channel P1 13:01:27 --------ALL STOP TIME OUT------ 13:01:28 Final Timeout: patient, procedure, and site verified with staff and physician. All members of the team are in agreement. 13:01:29 Right Radial & Right Groin site verified by team. 13:01:32 Fire Safety Assessment: A--An alcohol-based skin anteseptic being used preoperatively., C--Open oxygen or nitrous oxide is being used., D--An ESU, laser, or fiber-optic light is being used. 13:01:35 Physical assessment completed. ASA score P 3 - A patient with severe systemic disease as per Elmer Schumacher MD. 13:01:39 4) 15-29 Severley reduced kidney function. 13:01:42 Maximum allowable contrast dose (3.7 X eGFR X 0.75)80 ml. 13:01:45 Sedation plan: IV Moderate Sedation Medication:Versed, Fentanyl 13:02:47 Procedure started. 13:02:52 Versed 1 mg I.V. was administered by Jonathan Arrieta RN; for sedation; Verbal order read back and verified. 13:03:01 Fentanyl 50 mcg I.V. was administered by Jonathan Arrieta RN; for sedation; Verbal order read back and verified. 13:03:06 Local anesthetic to right radial artery with Lidocaine 2% by Elmer Schumacher MD.INITIAL ACCESS ONLY 13:03:39 A 6 Fr Short sheath was inserted into the Right Radial artery 13:04:11 A DIAGNOSTIC [place] 110cm 5 Fr catheter (994074) was advanced over the wire and used for Procedure. 13:04:16 Radial Cocktail (Verapamil 2mg/Nitro 400mcg/Heparin 1500units) 1 syringe I.A. was administered by Elmer Schumacher MD; for vasodilation; Verbal order read back and verified. 13:04:42 LV gram done using [place] 13:04:49 Injector settings: Ml/sec: 3, Volume: 6, 13:05:25 EF : 60 % 13:06:08 LCA angiography performed. 13:06:45 RCA angiography performed. 13:07:02 Catheter exchanged over wire. 13:08:08 GUIDE 6FR AR 2.0 catheter ([id number]) opened to sterile field. 13:08:23 INFLATOR Merit BasixCompak (NS1791) opened to sterile field. 13:08:23 [place] Verrata Plus pressure wire (13605G) opened to sterile field. 13:08:28 Proceeding to intervention. 13:08:33 6 Fr AR 2 guide catheter was inserted over the wire 13:09:42 FFR/IFR wire advanced. 13:10:27 Wire advanced across lesion. 13:10:33 mRCA lesion measured at .77 with IFR 13:10:40 Wire removed. 13:10:41 Guide catheter removed. 13:10:49 GUIDE 6FR XBLAD 3.5 catheter ([id number]) opened to sterile field. 13:10:51 CHOICE PT Extra Support 182cm wire ([id number]) opened to sterile field. 13:11:23 Heparin Bolus 4000 units I.V. was administered by Jonathan Arrieta RN; for anticoagulation; Verbal order read back and verified. 13:11:39 Integrilin (Bolus 2mg/ml) 8.5 ml I.V. was administered by Jonathan Arrieta RN; for antiplatelet therapy; Verbal order read back and verified. 13:11:40 6 Fr XBLAD 3.5 guide catheter was inserted over the wire 13:11:51 Integrilin (Bolus 2mg/ml) 1.5 ml wasted was administered by Jonathan Arrieta RN; to sharp's; Verbal order read back and verified. 13:13:21 Pre PCI Site: [place] mLAD has 90% stenosis. 13:13:25 CHOICE ES 182 wire advanced. 13:13:43 Wire advanced across lesion. 13:14:24 Place stent Inflation Number: 1 A BROCK RX 3.5 x 15 stent ([id number]) was prepped and advanced across the Mid LAD . The stent was deployed at 15 AISHA for 0:00 (min:sec) . 13:14:56 Stent catheter was removed intact over wire. 13:15:10 Wire redirected to CIRC. 13:15:30 Pre PCI Site: [place] dCirc has 90% stenosis. 13:16:50 Wire advanced across lesion. 13:17:58 Place stent Inflation Number: 1 A BROCK RX 2.75 x 18 stent ([id number]) was prepped and advanced across the Dist CX . The stent was deployed at 11 AISHA for 0:00 (min:sec) . 13:18:04 Stent catheter was removed intact over wire. 13:18:05 Wire removed. 13:18:05 Guide catheter removed. 13:18:10 ZEPHYR REGULAR TR BAND (621602) opened to sterile field. 13:18:46 Procedure ended.(Physican Out) 13:18:52 Sheath removed intact; hemostasis achieved with Mechanical Compression to the Right Radial artery. 13:19:04 Fluoroscopy time 06.00 minutes. 13:19:07 Fluoroscopy dose: 713 mGy 13:19:07 Flurop Dose total: 713 13:19:14 Dose Area Product 76467 mGy/cm. 13:19:18 Contrast amount:Isovue 300 68ml. 13:19:20 Maximum allowable dose exceeded? No. 13:19:21 Sharps counted by scrub and verified by R.N. 13:19:29 Mcintosh band inflated with 10cc of air. 13:19:35 Post-procedure physical assessment completed. ASA score P 3 - A patient with severe systemic disease as per Elmer Schumacher MD. 13:19:37 Post procedure rhythm: unchanged. 13:19:39 Estimated blood loss: 10 ml 13:19:41 Post procedure instruction explained to patient.Patient verbalizes understanding. 13:19:41 Patient needs reinforcement of post procedure teaching. 13:20:24 ACT drawn and resulted at 247 seconds. (normal therapeutic range 180-240 seconds). 13:21:10 Procedure type changed to Cath procedure, Diagnostic procedure, C, [facility] w/Coronaries, FFR/IVUS, FFR Initial, Sedation Charges, Moderate Sedation up to 15 minutes, PCI procedure, Coronary Stent, Coronary Stent Initial x2, Hemochron ACT Test 13:22:10 Procedure and supply charges have been captured, reviewed, submitted and are correct. 13:22:13 Procedure Complication : No complications 13:22:15 Plavix 600 mg P.O. was administered by Jonathan Arrieta RN; for antiplatelet therapy; Verbal order read back and verified. 13:22:15 Vital chart was stopped 13:22:16 [facility] Findings: MVD- PCI performed (see procedure note) 13:22:17 Operative report dictated upon procedure completion. 13:22:18 See physician's report for complete and final results. 13:22:19 Report given to Pre/Post Procedure Room. 13:22:22 Patient transfered to Pre/Post Procedure Room with Bed. 13:22:27 Procedure ended. 13:22:27 Full Disclosure recording stopped 13:22:40 ACC-PCI Only Patient was given prescriptions, or instructed by Elmer Schumacher MD to start/continue the following medications upon discharge: Plavix 13:22:42 End room use (Document Last) Intervention Summary Intervention Notes Time ActionType Lesion and Equipment Used Action# Pressure Duration Attributes 13:14:24 Place stent Mid LAD BROCK RX 3.5 x 1 15 00:00 15 stent ([id number]) 13:17:58 Place stent Dist CX BROCK RX 2.75 x 1 11 00:00 18 stent ([id number]) Device Usage Item Name Manufacture Quantity Catalog Number Hospital Part Current Minimal Lot# / Charge Number Stock Stock Serial# Code ACIST Syringe Acist 1 71014 239051 733765 302608 20 (89470) Medical [employer] Inc Medline Cath Medline 1 [id number] 206004 34057 784170 5 Pack ([id number]) Bag Decanter Microtek 1 422046 24493 439679 5 (2002S) Medical Inc. ACIST Hand Acist 1 68085 417381 473908 390019 5 Control Medical (42142) Systems Inc ACIST Manifold Acist 1 80012 838516 094498 252575 5 (76230) Medical Systems Inc Tegaderm 4 x 4 3M 1 1626W 595491 559255 812792 5 (1626W) MBrace Wrist Advanced 1 140-0250-00 820883 89699 013385 5 Support Vascular (036095366) Dynamics EMERALD Guide Cardinal 1 502-455 542328 069428 178730 5 Wire (502-455) Health SHEATH 6FR Cardinal 1 5026498 826832 7002502 131943 5 RAIN (5067222) Health DIAGNOSTIC [place]umo 1 40-3913 892955 227158 808453 5 [place] 110cm 5 Fr catheter (089370) GUIDE 6FR AR Medtronic 1 [id number] 634185 85053 742250 1 2.0 catheter ([id number]) INFLATOR Merit Merit 1 XC8939 662291 119872 020911 15 [employer] Medical (TM9103) [place] 1 57465Y 916116 120824457 085437 5 Verrata Plus pressure wire (59629G) GUIDE 6FR Cardinal 1 98955804 288539 449590 339473 10 XBLAD 3.5 Health catheter (76482286) CHOICE PT [place] 1 [id number] 794365 363928 527591 5 Extra Support Scientific 182cm wire ([id number]) BROCK RX 3.5 x Medtronic 1 [id number] 826029 6390525 383013 5 [id number] 15 stent ([id number]) BROCK RX 2.75 x Medtronic 1 [id number] 544273 2140897 337724 5 [id number] 18 stent ([id number]) ZEPHYR REGULAR Cardinal 1 486327 055099 2987074 662230 5 TR BAND Factor 14 (517986) Signature Audit [place] Stage Time Signature Unsigned Intra-Procedure 04/17/2019 Dalila Nina 1:25:35 PM RT(R) Intra-Procedure 04/17/2019 Jonathan 1:25:54 PM Meenakshi GODFREY Intra-Procedure 04/17/2019 Elmer Schumacher 1:27:08 PM [facility] [address] [place] [address]
[~2019-04-17 09:58] MED LIST changes: +BETAPACE 120 M120 MG PO; +BUMEX2 MG PO; +CATAPRES0.1 MG PO; +DEXAMETHASONE2 MG PO; +IPRATROPIUM BRO30 M1; +ISOSORBIDE MONO30 M1 PO; +PLAVIX75 MG PO; +TRELEGY ELLIPT1 EACH INH; +ZESTRIL10 MG PO
[2019-04-17 10:21] LABS: BASOPHILS 0.4 % (0-2); EOSINOPHILS 1.8 % (0-7); HEMATOCRIT 34.8 % (42.0-54.0); HEMOGLOBIN 11.4 g/dL (13.5-17.5); IMMATURE GRANULOCYTES 0.8 % (0-5); LYMPHOCYTES 21.4 % (15-50); MCH 28.9 pg (26.0-34.0); MCHC 32.8 g/dL (31.0-37.0); MCV 88.3 fL (80.0-100.0); MEAN PLATELET VOLUME 8.5 fL (7.4-10.4); MONOCYTES 8.7 % (2-11); NEUTROPHILS 66.9 % (40-80); PLATELET COUNT 206 10x3/uL (130-400); RBC 3.94 10x6/uL (4.20-6.10); RDW 13.9 % (11.5-14.5); WBC 7.9 10x3/uL (4.8-10.8)
[2019-04-17 10:34] LABS: APTT 30.5 SECONDS (22.8-39.4); INR 0.93 (0.85-1.17); PROTIME 12.4 SECONDS (11.6-15.0)
[2019-04-17 10:41] LABS: CALC OSMOLALITY 292 mosm/kg (275-300); CALCIUM 8.6 mg/dL (8.5-10.1); CARBON DIOXIDE 25.5 mmol/L (21.0-32.0); CHLORIDE - SERUM 107 mmol/L (98-107); CREATININE - SERUM 2.3 mg/dL (0.6-1.3); GLUCOSE 128 mg/dL (74-106); POTASSIUM - SERUM 3.9 mmol/L (3.5-5.1); SODIUM 141 mmol/L (136-145); UREA NITROGEN 40 mg/dL (7-18); eGFR NON AFRICAN AMERICAN 29 mL/min (90-120)
[2019-04-17 10:59] LABS: ALBUMIN 3.1 g/dL (3.4-5.0); ALKALINE PHOSPHATASE 101 U/L (46-116); ALT (SGPT) 17 U/L (10-68); BILIRUBIN - TOTAL 0.24 mg/dL (0.2-1.3); CKMB 1.6 U/L (0.0-3.6); CREATINE KINASE 48 UL (21-232); PROTEIN - SERUM 6.3 g/dL (6.4-8.2); TROPONIN-I 0.021 ng/mL (0.000-0.060)
[2019-04-17 11:15] VITALS: BP 125/67
[2019-04-17 11:59] VITALS: Ht 177.8 cm; Wt 93.2 kg
--- NOTE | 2019-04-17 13:22 | CN ---
PATIENT NAME:ANNA LANTIGUA JR MEDICAL RECORD: [id number] : 38 LOCATION:[facility] ADMIT DATE: ACCOUNT: [id number] CONSULTING PHYSICIAN: RAN IQBAL MD REFERRING PHYSICIAN: RAN IQBAL MD DATE OF CONSULTATION: 04/17/2019 DIAGNOSES: 1. Unstable angina. 2. Coronary artery disease. 3. Previous percutaneous transluminal coronary angioplasty stent. 4. Hypertension. 5. Hyperlipidemia. 6. Sick sinus syndrome. 7. Status post pacemaker. 8. Paroxysmal atrial fibrillation. HISTORY OF PRESENT ILLNESS: Mr. Lantigua presents with increasing episodes of chest pain, chest discomfort compatible with angina. He has a history of coronary artery disease, PTCA stent in the distant past. His chest discomfort is quite severe and worse and he has taken multiple sublingual nitro. He is having class IV rest pain. He has a history of atrial fibrillation. He is on sotalol and diltiazem. He remains in and out of atrial fibrillation. Otherwise, his EKG is with nonspecific ST-T abnormalities. He continues to have the episodes of chest discomfort at rest. PHYSICAL EXAMINATION: CONSTITUTIONAL/GENERAL APPEARANCE: Well nourished, well developed, appears stated age. EYES: Lids and conjunctivae noninjected. No discharge. No pallor. ENT: Lips within normal limit. No cyanosis. No pallor. NECK: Carotid arteries, bilateral normal upstroke. No bruits. No thrills. No jugular venous pressure or distention. CERVICAL LYMPH NODES: Nontender. Nonenlarged. THYROID: Not enlarged. No nodules. CARDIOVASCULAR: Precordial exam, nondisplaced. No heaves or pericardial thrills. Rate and rhythm, regular. Heart sounds, normal S1, normal S2. No S3, no gallop, no rub. Systolic murmur, not heard. Diastolic murmur, not heard. RESPIRATORY: Respiratory effort, unlabored. Normal curvature. No thoracic deformity. No chest wall tenderness. Percussion, resonant. Auscultation, clear. No wheezes, no rales, no rhonchi. ABDOMEN: Soft, nondistended, nontender. No abdominal pain, no vomiting and normal appetite. MUSCULOSKELETAL: No joint tenderness, normal gait, normal tone. SKIN: Warm and dry. OVERALL IMPRESSION: Unstable angina. We will hydrate, proceed with coronary angiography. Further care depends upon the findings of the angiography. TRANSINT:[id number] Voice Confirmation ID: [id number] DOCUMENT ID: [id number] CONSULT REPORT [id number] ANNA LANTIGUA JR, JEFFREY MD at 1322 CC: [id number] DICTATION DATE: 04/17/19 1158 WOOD FORM BUILDER: 04/17/19 1317 [id number] [place] [address]
--- NOTE | 2019-04-17 13:57 | NUR ---
REC TO ROOM VIA STRETCHER FROM SUPERVISOR CAR INSTALLATIONS. MONITORING INITIATED. R WRIST Z BAND INTACT, NO S/S BLEEDING OR HEMATOMA, RADIAL PULSE PALPABLE. MONITORING INITIATED.
--- NOTE | 2019-04-17 14:30 | NUR ---
R WRIST ZBAND CDI, NO S/S BLEEDING OR HEMATOMA. RADIAL PULSE PALPABLE. PACED RHYTHM AT 60, BP 145/78.
--- NOTE | 2019-04-17 14:45 | NUR ---
R WRIST Z BAND WITHOUT S/S BLEEDING OR HEMATOMA. VOIDED 400 CC CLEAR YELLOW URINE. HR PACED, 62. BP 134/71. RR 13, SAT 97% ON 2LNC. FAMILY AT BEDSIDE.
--- NOTE | 2019-04-17 15:15 | NUR ---
R WRIST ZBAND CDI, NO S/S BLEEDING OR HEMATOMA. REPOSITIIONED UP IN BED FOR COMFORT, PROVIDED SANDWICH AND SODA PER REQUEST. HR PACED 60, BP 139/77, RR 16, SAT 95% ON 2LNC.
--- NOTE | 2019-04-17 15:44 | NUR ---
R WRIST ZBAND CDI, NO S/S BLEEDING OR HEMATOMA. RADIAL PULSE PALPABLE. PACED RHYTHM AT 60, BP 157/86. SAT 96% ON 2LNC. FAMILY AT BEDSIDE.
--- NOTE | 2019-04-17 16:15 | NUR ---
R WRIST ZBAND CDI, NO S/S BLEEDING OR HEMATOMA. RAD PULSE PALPABLE. FAMILY AT BEDSIDE. PACED RHYTHM 60, BP 154/73, SAT 96% ON 2LNC, RR 16.
--- NOTE | 2019-04-17 16:30 | NUR ---
R WRIST ZBAND CDI, NO S/S BLEEDING OR HEMATOMA. 3ML AIR REMOVED FROM BAND. CONT MONITORING.
--- NOTE | 2019-04-17 16:52 | NUR ---
3ML AIR REMOVED FROM Z BAND FOR TOTAL OF 6ML. NO S/S BLEEDING OR HEMATOMA. PACED RHYTHM 61, BP 147/71, SAT 97% RR 14 ON 2LNC.
--- NOTE | 2019-04-17 17:01 | NUR ---
2ML AIR REMOVED FROM ZBAND, TOTAL OF 8 ML REMOVED. NO S/S BLEEDING OR HEMATOMA. PACED RHYTHM 60, SAT 97% ON RA NOW, BP 147/71.
--- NOTE | 2019-04-17 17:10 | NUR ---
IV DC, TIP INTACT. SKIN TEAR TO R SUB ANTECUBITAL SPACE WITH TAPE REMOVAL FROM IV. SKIN EDGES APPROXIMATED AND STERI STRIPS APPLIED. COVERED WITH MEPILEX DRESSING AND PT ADVISED TO REMOVE ON SATURDAY USING BABY OIL OR OLIVE OIL ON COTTON TO RELEASE ADHESIVE. PT, AND DTR VERBALIZE UNDERSTANDING. MONITORING DC. PT DRESSING WITH SON'S HELP.
--- NOTE | 2019-04-17 17:30 | NUR ---
AMBULATED TO REST ROOM, VOIDING BLADDER, NO REPORTED DIFFICULTY. DC INSTRUCTION REVIEWED W PT, AND SON. PT DC HOME VIA WHEELCHAIR TO PRIVATE VEHICLE WITH FAMILY. HAS INFORMATION ON RETURNING SATURDAY AM FOR CATH. PT HAS ALL BELONGINGS.
--- NOTE | 2019-04-21 11:24 | OP ---
PATIENT NAME: ANNA LANTIGUA JR MEDICAL RECORD: [id number] :38 LOCATION:D.CAT ADMISSION DATE: SURGEON: RAN IQBAL MD DATE OF OPERATION: 04/17/2019 PROCEDURES: 1. PTCA stent LAD. 2. PTCA stent left circumflex. 3. IFR RCA. 4. Left heart catheterization. 5. Selective coronary angiography. 6. Left ventriculogram. INDICATION: Unstable angina and coronary artery disease. PROCEDURE IN DETAIL: After informed consent was obtained and after a detailed description of risks, benefits as well as alternative therapies, the patient elected to proceed with angiogram and angioplasty. The right radial area was prepped and draped in normal sterile fashion. Right radial artery was cannulated via modified Seldinger technique with placement of 6-Setswana sheath. All catheters exchanged through this sheath. FINDINGS: Left ventriculogram was performed in standard 30-degree [place] view reveals good cardiac wall motion, ejection fraction estimated 60%. SELECTIVE CORONARY ANGIOGRAPHY: 1. Left main is with no significant angiographic disease. 2. Left anterior descending has 90% stenosis proximally. 3. Left circumflex has 90% stenosis in the mid vessel. 4. Right coronary artery has 70% to 80% stenosis times 2 and IFR was abnormal at 0.77. PTCA STENT OF THE LAD: The stent used was a 3.5 x 15 mm [place]. Result was 0% residual stenosis. PTCA STENT OF THE LEFT CIRCUMFLEX: The stent used was a 2.75 x 18 mm [place]. Result was 0% residual stenosis. RCA will be addressed at a later time secondary to dye conservation due to his renal insufficiency. OVERALL IMPRESSION: Successful percutaneous transluminal coronary angioplasty stent of the left anterior descending and circumflex, both going from 90% initial stenosis to 0% residual. PLAN: PTCA stent of the RCA in the near future. TRANSINT:[id number] Voice Confirmation ID: [id number] DOCUMENT ID: [id number] OPERATIVE REPORT [id number] ANNA LANTIGUA JR, JEFFREY MD at 1124 CC: [id number] DICTATION DATE: 04/17/19 1323 DIRECTOR OF [employer] AFF[employer]: 04/17/19 1353 DEP CLI 04/17/19 [place] [address]
== END | disposition home or self-care (01) ==
LOC: D.CATH 09:58 → D.ER 09:58 → EDSTATUS 13:05
PROVIDERS: Family Medicine; ATTEND Internal Medicine Interventional Cardiology
DX: I25.110 Atherosclerotic heart disease of native coronary artery with unstable angina pectoris (principal); I10 Essential (primary) hypertension; E78.5 Hyperlipidemia, unspecified; I49.5 Sick sinus syndrome; Z95.0 Presence of cardiac pacemaker; I48.0 Paroxysmal atrial fibrillation
CPT/HCPCS: 93458; 93571; C9600 ×2

== ENCOUNTER → 2019-04-20 08:47 | Outpatient (CLI) | payer MEDICARE ==
[~2019-04-20] VITALS: Ht 177.8 cm; Wt 90.0 kg
--- NOTE | ~2019-04-20 | HEMODYNAMI ---
PATIENT:ANNA LANTIGUA JR MEDICAL RECORD: [id number] : 38 LOCATION:D.CAT ADMISSION DATE: 04/20/19 Generatedon:04/20/201911:50 Patient name: ANNA LANTIGUA Patient #: [id number] SSN: [id number] : 1940 Date of study: 04/20/2019 Page: Of Hemodynamic Procedure Report Patient Data Patient Demographics Procedure consent was obtained First Name: ANNA Gender: Male Last Name: Suffix: [facility] Initial: Tamiko : 1940 Patient #: [id number] Age: 78 year(s) Race: SSN: [id number] Additional ID: [id number] Contact details Address: [address] [place] [address] ROAD State: [place] City: [place] Zip code: [address] Past Medical History Allergies Allergen Reaction Date Comments Reported Sulfa drugs 04/18/2018 Other allergy 04/17/2019 SULFA, AMIODARONE, REGLAN Admission Admission Data Admission Date: 04/20/2019 Admission Time: 8:47 Arrival Date: 04/20/2019 Arrival Time: 0:00 Admit Source: Other Insurance Payor: Medicare [facility] #: [id number] Height (in.): 70 BSA: 2.08 (m2) Height (cm.): 177.8 BMI: 28.47 (kg/m2) Weight (lbs.): 198.42 Weight (kg.): 90 Lab Results Lab Result Date: 04/20/2019 Lab Result Time: 0:00 Biochemistry Name Units Result Min Max BUN mg/dl 36 --(----)-* 7 18 Creatinine mg/dl 2.3 --(----)-* 0.6 1.3 eGFR ml/min 29 *-(----)-- 90 120 NONAFRICAN CBC Name Units Result Min Max Hematocrit % 35.7 *-(----)-- 42 54 Hemoglobin g/dl 11.9 *-(----)-- 13.5 17.5 Procedure Procedure Types Cath Procedure Diagnostic Procedure [facility] w/Coronaries Sedation Charges Moderate Sedation up to 15 minutes PCI Procedure Coronary Stent Coronary Stent Initial Coronary Stent Initial x2 Hemochron ACT Test Procedure Description Procedure Date Procedure Date: 04/20/2019 Procedure Start Time: 11:28 Procedure End Time: 11:48 Procedure Staff Name Function Elmer Schumacher MD Performing Physician Sheeba Hernandez RT Monitor Red LaGoon RT Scrub Jonathan Arrieta RN Nurse Procedure Data Cath Procedure Fluoroscopy Diagnostic fluoroscopy Total fluoroscopy Time: 5.1 time: 5.1 min min Diagnostic fluoroscopy Total fluoroscopy dose: 273 dose: 273 mGy mGy Contrast Material Contrast Material Type Amount (ml) Isovue 370 90 Entry Location Entry Primary Successful Side Size Upsize Upsize Entry Closure Succes sful Closure Location (Fr) 1 (Fr) 2 (Fr) Remarks Device Remarks Femoral Right 7 Fr Exoseal artery Short Estimated blood loss: 10 ml Procedure Complications No complications Procedure Medications Medication Administration Route Dosage 0.9% NaCl I.V. 100 ml/hr Oxygen etCO2 Nasal cannula 2 l/min Heparin Flush Bag added to field 2 bags (1000units/500ml NS) Lidocaine 2% added to field 20 Versed I.V. 2 mg Fentanyl I.V. 50 mcg Versed I.V. 1 mg Heparin Bolus I.V. 4000 units Hemodynamics Rest BSA: 2.08 (m2) HGB: 11.9 (g/dl) O2 Consumption: Estimated: 229.88 (ml/min) O2 Co nsumption indexed: Estimated:110.52 (ml/min/m) Heart Rate: 60 (bpm) Snapshots Pre Cath Intra NCS Post Cath Vital Signs Time Heart Resp SPO2 etCO2 NIBP (mmHg) Rhythm Pain Sedation Rate (ipm) (%) (mmHg) Status Level (bpm) 10:34:13 35 14 95 25.5 140/83(124) Paced 0 (11) 10(A) , No pain 10:38:26 59 12 96 24 123/70(97) Paced 0 (11) 10(A) , No pain 10:42:34 59 11 95 0 133/78(104) Paced 0 (11) 10(A) , No pain 10:46:50 60 12 96 3 134/75(109) Paced 0 (11) 10(A) , No pain 10:51:04 60 11 97 0 129/80(108) Paced 0 (11) 10(A) , No pain 10:55:18 60 11 97 0 129/76(93) Paced 0 (11) 10(A) , No pain 10:59:30 59 12 95 0 131/76(102) Paced 0 (11) 10(A) , No pain 11:03:44 60 12 96 0 131/73(98) Paced 0 (11) 10(A) , No pain 11:08:02 59 12 94 0 131/76(111) Paced 0 (11) 10(A) , No pain 11:12:18 60 15 94 0 126/74(97) Paced 0 (11) 10(A) , No pain 11:16:32 60 13 92 0 131/77(90) Paced 0 (11) 10(A) , No pain 11:20:46 42 14 93 0 130/79(103) Paced 0 (11) 10(A) , No pain 11:25:50 60 14 96 0 131/71(96) Paced 0 (11) 10(A) , No pain 11:30:48 60 16 89 0 Measuring Paced 0 (11) 9(A) , No pain 11:31:03 62 14 97 0 127/72(93) Paced 0 (11) 9(A) , No pain 11:35:17 60 13 96 0 127/70(105) Paced 0 (11) 9(A) , No pain 11:39:33 60 14 96 0 135/70(112) Paced 0 (11) 10(A) , No pain 11:43:47 60 15 96 0 143/82(124) Paced 0 (11) 10(A) , No pain 11:48:07 60 15 94 0 147/76(117) Paced 0 (11) 10(A) , No pain Medications Time Medication Route Dose Verified Delivered Reason Notes Effectiveness by by 10:34:13 0.9% NaCl I.V. 100 Jonathan Jonathan Per physician ml/hr Meenakshi Arrieta RN RN 10:34:24 Oxygen etCO2 2 Jonathan Jonathan for low 02 sats Nasal l/min Meenakshi Arrieta cannula RN RN 10:34:35 Heparin Flush added 2 Jonathan Jonathan used for Bag to bags Meenakshi Arrieta procedure (1000units/500ml field RN RN NS) 10:34:56 Lidocaine 2% added 20ml Jonathan Jonathan for local to vial Meenakshi Arrieta anesthetic field GODFREY RN 11:22:13 Versed I.V. 2 mg Jonathan Jonathan for sedation Meenakshi Arrieta RN RN 11:22:40 Fentanyl I.V. 50 Jonathan Jonathan for sedation mcg Meenakshi Arrieta RN RN 11:26:03 Versed I.V. 1 mg Jonathan Jonathan for sedation Meenakshi Arrieta RN, RN 11:36:48 Heparin Bolus I.V. 4000 Jonathan Jonathan for units Meenakshi Arrieta anticoagulation RN school transportation supervisor Log Time Note 10:16:09 Informed consent obtained and on chart 10:16:26 Jonathan Arrieta RN sent for patient. Start room use. 10:22:26 Procedure Status Elective Heart Cath (OP). 10:22:28 Time tracking: Regular hours (M-F 7:00 - 5:00) 10:22:34 Plan of Care:Hemodynamics will remain stable., Cardiac rhythm will remain stable., Comfort level will be maintained., Respiratory function will remain adequate., Patient/ family verbilizes understanding of procedure., Procedure tolerated without complication., Recovers from procedure without complications.. 10:22:39 Patient received from Pre/Post Procedure Room to CCL 1 Alert and oriented. Tansferred to table in Supine position. 10:22:40 Warm blankets applied, and zina hugger turned on for patient comfort. 10:22:41 Correct patient and procedure confirmed by team. 10:22:41 ECG and BP/O2 sat monitors applied to patient. 10:23:19 H&P Date Dictated: 04/13/2019 Within 30 days and on chart.. 10:23:20 Pre-procedure instructions explained to patient. 10:23:21 Pre-op teaching completed and patient verbalized understanding. 10:23:23 Family in waiting room. 10:23:25 Patient NPO since Midnight. 10:23:27 Is the patient allergic to Iodine/contrast media? No. 10:23:29 Was the patient premedicated? Yes 10:23:34 Is patient on blood thinner?Yes 10:23:36 Patient diabetic? No. 10:23:38 If diabetic: On Metformin? N/A 10:23:40 - 10:23:41 ----Pre-sedation anethsthesia assessment.---- 10:23:47 Previous problem with sedation/anesthesia? No ? 10:23:55 Diagnostic Cath Status : Elective 10:24:34 ACC The patient was administered the following blood thiners within the last 24 hours: ACCPlavix 10:25:12 Arrival Date: 04/20/2019 12:00:00 AM 10:25:14 Admit Source: Other 10:25:18 Patient Height : 70 inches 10:25:25 Patient Weight : 198.42 lbs 10:25:36 Insurance Payor : Medicare 10:27:09 Procedure type changed to Cath procedure, Diagnostic procedure, LHC, LH C w/Coronaries, Sedation Charges, Moderate Sedation up to 15 minutes, PCI procedure, Coronary Stent, Coronary Stent Initial, Coronary Stent Initial x2, Hemochron ACT Test 10:30:44 Sleep apnea? Yes 10:31:02 Snore? Yes 10:31:15 Deviated septum? No 10:31:16 Opens mouth fully? Yes 10:31:18 Sticks out tongue? 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 No ? 10:31:37 Patient pain scale 0/10 ?. 10:31:50 IV patent on arrival in left antecubital with 0.9% NaCl at KVO. 10:31:59 Pre procedure: right dorsailis pedis pulse 2+ Normal; easily identifiable; not easily obliterated 10:32:33 Lab results completed and on chart. 10:32:57 Stress Test: no; N/A ? 10:33:03 Right groin area was prepped with chlora-prep and draped in sterile fashion 10:33:04 Alarms reviewed by RJulissa NJulissa 10:33:05 Sharps counted by scrub and verified by R.N. 10:33:08 Vital chart was started 10:33:15 Rhythm: sinus rhythm , paced 10:33:17 Baseline sample Acquired. 10:33:17 Full Disclosure recording started 10:34:13 0.9% NaCl 100 ml/hr I.V. was administered by Jonathan Arrieta RN; Per physician; Verbal order read back and verified. 10:34:24 Oxygen 2 l/min etCO2 Nasal cannula was administered by Jonathan Arrieta RN; for low 02 sats; Verbal order read back and verified. 10:34:35 Heparin Flush Bag (1000units/500ml NS) 2 bags added to field was administered by Jonathan Arrieta RN; used for procedure; Verbal order read back and verified. 10:34:56 Lidocaine 2% 20ml vial added to field was administered by Jonathan Arrieta RN; for local anesthetic; Verbal order read back and verified. 10:42:31 Risk of Mortality: 0.4 10:42:39 Risk of blood transfusion: 0.8 10:42:41 Risk of BETITO: 4.5 10:42:47 Use device set Femoral Dx 10:42:48 ACIST Syringe (27564) opened to sterile field. 10:42:49 Bag Decanter (2002S) opened to sterile field. 10:42:49 Medline Cath Pack ([id number]) opened to sterile field. 10:42:51 ACIST Hand Control (07624) opened to sterile field. 10:42:52 ACIST Manifold (84939) opened to sterile field. 10:42:57 EMERALD Guide Wire (728-618) opened to sterile field. 10:43:01 Use device set TAUTH PCI 10:43:05 INFLATOR Merit BasixCompak (WD4256) opened to sterile field. 10:44:56 Lab Result : BUN 36 mg/dl 10:44:56 Lab Result : Creatinine 2.3 mg/dl 10:44:56 Lab Result : eGFR NONAFRICAN 29 ml/min :44:56 Lab Result : Hemoglobin 11.9 g/dl 10:44:56 Hemodynamic formulas in Rest were re-calculated based on hemoglobin value from 04/20/2019 12:00:00 AM 10:44:56 Lab Result : Hematocrit 35.7 % 10:45:31 ACC Patient presents with Stable Angina CCS Anginal Class 2--Slight limitation of ordinary activity. 11:18:59 --------ALL STOP TIME OUT------ 11:19:00 Final Timeout: patient, procedure, and site verified with staff and physician. All members of the team are in agreement. 11:19:02 Right groin site verified by team. 11:19:05 Fire Safety Assessment: A--An alcohol-based skin anteseptic being used preoperatively., C--Open oxygen or nitrous oxide is being used., D--An ESU, laser, or fiber-optic light is being used. 11:19:08 Physical assessment completed. ASA score P 2 - A patient with mild systemic disease as per Elmer Schumacher MD. 11:19:13 4) 15-29 [place] reduced kidney function. 11:19:16 Maximum allowable contrast dose (3.7 X eGFR X 0.75)80 ml. 11:19:21 Sedation plan: IV Moderate Sedation Medication:Versed, Fentanyl 11:22:13 Versed 2 mg I.V. was administered by Jonathan Arrieta RN; for sedation; Verbal order read back and verified. 11:22:40 Fentanyl 50 mcg I.V. was administered by Jonathan Arrieta RN; for sedation; Verbal order read back and verified. 11:26:03 Versed 1 mg I.V. was administered by Jonathan Arrieta RN; for sedation; Verbal order read back and verified. 11:27:59 SHEATH 7FR [place] ([id number]) opened to sterile field. 11:28:06 Procedure started. 11:28:10 Local anesthetic to right femoral artery with Lidocaine 2% by Elmer Schumacher MD.INITIAL ACCESS ONLY 11:28:20 A 7 Fr Short sheath was inserted into the Right Femoral artery 11:28:38 GUIDE 7FR HS II catheter ([id number]) opened to sterile field. 11:29:29 Catheter removed. 11:30:06 UNABLE TO CANNULATE WTH 7FR SHEATH GOING TO 7F ARROW. 11:30:23 SHEATH 7FR ARROW 45cm ([id number]) opened to sterile field. 11:31:42 7 Fr HS 2 guide catheter was inserted over the wire 11:33:01 UNABLE TO CANNULATE WITH HS 2 GOING HS 1. 11:33:19 GUIDE 7FR HS I SH catheter ([id number]) opened to sterile field. 11:34:34 UNABLE TO CANNULATE WITH HS 1 CHANGING TO AR 1. 11:34:56 GUIDE 7FR AR 1.0 catheter ([id number]) opened to sterile field. 11:35:45 ASAHI MINAMO 190 wire advanced. 11:35:51 Asahi Minamo 190cm wire opened to sterile field. 11:36:48 Heparin Bolus 4000 units I.V. was administered by Jonathan Arrieta RN; for anticoagulation; Verbal order read back and verified. 11:37:11 Pre PCI Site: [place] mRCA has 70% stenosis. 11:38:33 Place stent Inflation Number: 1 A BROCK RX 3.5 x 22 stent ([id number]) was prepped and advanced across the Mid RCA . The stent was deployed at 15 AISHA for 0:00 (min:sec) . 11:38:40 Stent catheter was removed intact over wire. 11:41:38 Place stent Inflation Number: 1 A BROCK RX 3.5 x 26 stent ([id number]) was prepped and advanced across the Prox RCA . The stent was deployed at 19 AISHA for 0:00 (min:sec) . 11:42:24 EXCHANGING 7F LONG SHEATH FOR SHORT SHEATH. 11:42:30 EXOSEAL 7Fr (EX700) opened to sterile field. 11:42:45 Sheath removed intact; hemostasis achieved with Exoseal to the Right Femoral artery. 11:43:10 Procedure ended.(Physican Out) 11:43:43 Fluoroscopy time 05.10 minutes. 11:43:47 Flurop Dose total: 273 11:43:47 Fluoroscopy dose: 273 mGy 11:43:56 Dose Area Product 43062 mGy/cm. 11:44:00 Contrast amount:Isovue 370 90ml. 11:44:03 Maximum allowable dose exceeded? Yes. 11:44:04 Sharps counted by scrub and verified by R.N. 11:44:11 Post-op/insertion site Right Femoral artery dressed using a 4 x 4 and Tegaderm. 11:44:15 Post right femoral artery:stable, soft, clean and dry 11:44:17 Post Procedure Pulses reassessed and unchanged 11:44:20 Post procedure: right dorsailis pedis pulse 2+ Normal; easily identifiable; not easily obliterated. 11:44:23 Post-procedure physical assessment completed. ASA score P 2 - A patient with mild systemic disease as per Elmer Schumacher MD. 11:44:27 Post procedure rhythm: unchanged. 11:44:29 Estimated blood loss: 10 ml 11:44:31 Post procedure instruction explained to patient.Patient verbalizes understanding. 11:44:32 Patient needs reinforcement of post procedure teaching. 11:45:57 ACT drawn and resulted at 202 seconds. (normal therapeutic range 180-24 0 seconds). 11:47:40 Procedure and supply charges have been captured, reviewed, submitted an d are correct. 11:47:48 Procedure Complication : No complications 11:47:51 Vital chart was stopped 11:47:52 [facility] Findings: MVD- PCI performed (see procedure note) 11:47:54 Operative report dictated upon procedure completion. 11:47:55 See physician's report for complete and final results. 11:47:57 Report given to Pre/Post Procedure Room. 11:48:00 Patient transfered to Pre/Post Procedure Room with Stretcher. 11:48:02 Procedure ended. 11:48:02 Full Disclosure recording stopped 11:48:13 ACC-PCI Only Patient was given prescriptions, or instructed by Elmer Schumacher MD to start/continue the following medications upon discharge: Plavix 11:48:15 End room use (Document Last) 11:49:05 End room use (Document Last) 11:50:04 End room use (Document Last) Intervention Summary Intervention Notes Time ActionType Lesion and Equipment Used Action# Pressure Duration Attributes 11:38:33 Place stent Mid RCA BROCK RX 3.5 x 1 15 00:00 22 stent ([id number]) 11:41:38 Place stent Prox RCA BROCK RX 3.5 x 1 19 00:00 26 stent ([id number]) Device Usage Item Name Manufacture Quantity Catalog Hospital Part [facility] Lot# / Number Charge Number Stock Stock Serial# Code ACIST Syringe Acist 1 73464 764708 421202 345194 20 (60444) Medical Systems Inc Bag Decanter Microtek 1 371809 95254 411984 5 () Medical Inc. Medline Cath Medline 1 [id number] 627792 76026 156562 5 Pack ([id number]) ACIST Hand Acist 1 93835 589595 170122 610983 5 Control Medical (58801) Systems Inc ACIST Manifold Acist 1 56107 928696 457698 201782 5 (32973) Medical Systems Inc EMERALD Guide Cardinal 1 502-455 518668 330319 648828 5 Wire (502-455) Health INFLATOR Merit Merit 1 HH9724 033933 434459 645978 15 BasixCompak Medical (GN0741) SHEATH 7FR Terumo 1 DSG652 728467 973229 849801 5 [place] (YOS938) GUIDE 7FR HS Medtronic 1 [id number] 719890 644625 215414 0 II catheter (ME5IOVW) SHEATH 7FR Teleflex 1 CL-61891 804536 885757 269921 1 ARROW 45cm (BD03024) GUIDE 7FR HS I Medtronic 1 [id number] 375058 026089 298664 0 SH catheter ([id number]) GUIDE 7FR AR Medtronic 1 [id number] 937392 959532 315819 0 1.0 catheter (FM2JR10) [facility] Intecc 1 [id number] 558729 8161705 4940934 0 190cm wire BROCK RX 3.5 x Medtronic 1 [id number] 540849 1117322 579802 5 [id number] 22 stent ([id number]) BROCK RX 3.5 x Medtronic 1 [id number] 694528 2722797 136129 5 [id number] 26 stent ([id number]) EXOSEAL 7Fr Cardinal 1 EX700 905672 569882 187378 5 (EX700) Health Signature Audit [place] Stage Time Signature Unsigned Intra-Procedure 04/20/2019 Sheeba Hernandez 11:49:05 AM RT(R) Intra-Procedure 04/20/2019 Jonathan 11:50:04 AM Meenakshi GODFREY Intra-Procedure 04/20/2019 Elmer Schumacher 11:50:[address] [address]
[2019-04-20 09:32] VITALS: BP 175/84; Ht 177.8 cm; Wt 90.0 kg
[2019-04-20 09:41] LABS: BASOPHILS 0.6 % (0-2); EOSINOPHILS 2.5 % (0-7); HEMATOCRIT 35.7 % (42.0-54.0); HEMOGLOBIN 11.9 g/dL (13.5-17.5); IMMATURE GRANULOCYTES 0.4 % (0-5); LYMPHOCYTES 22.6 % (15-50); MCH 29.4 pg (26.0-34.0); MCHC 33.3 g/dL (31.0-37.0); MCV 88.1 fL (80.0-100.0); MEAN PLATELET VOLUME 8.7 fL (7.4-10.4); MONOCYTES 5.9 % (2-11); PLATELET COUNT 193 10x3/uL (130-400); RBC 4.05 10x6/uL (4.20-6.10); RDW 13.7 % (11.5-14.5); WBC 7.1 10x3/uL (4.8-10.8)
[2019-04-20 09:54] LABS: ANION GAP 12.6 mmol/L (8-16); CALCIUM 8.4 mg/dL (8.5-10.1); CARBON DIOXIDE 25.7 mmol/L (21.0-32.0); CHOL - HDL RATIO 4.9 ratio (2.3-4.9); CREATININE - SERUM 2.3 mg/dL (0.6-1.3); LDL-HDL RATIO 3.2 ratio (1.5-3.5); POTASSIUM - SERUM 4.3 mmol/L (3.5-5.1)
--- NOTE | 2019-04-20 11:55 | NUR ---
PT RECEIVED VIA STRETCHER FROM [employer]TY [employer]. PT SLEEPING BUT VERBALLY AROUSABLE. PT DENIES PAIN OR DISCOMFORT. PT PLACED ON RFID ANALYST AND O2 VIA NC AT 2L. HR PACED RATE 65, BP 134/67, RR 14, SAT 98. R GROIN W 7FR EXOCELE, DRESSING CDI NO S/S HEMATOMA NOTED. LEG PINK AND WARM, PEDAL PULSES PALPABLE. PT INSRUCTED TO KEEP HEAD ON PILLOW AND LEG STRAIGHT, HE VERBALIZED UNDERSTANDING. CALL LIGHT IN REACH, FAMILY AT BS. IV PATENT INFUSING VIA ORDERS.
--- NOTE | 2019-04-20 12:15 | NUR ---
PT RESTING COMFORTABLY, R GROIN SOFT, DRESSING REMAINS CDI NO BLEEDING OR S/S HEMATOMA NOTED. SIPS OF OJ GIVEN. VSS. FAMILY AT BS, CALL LIGHT IN REACH
--- NOTE | 2019-04-20 12:48 | NUR ---
R GROIN SOFT, CDI. NO S/S BLEEDING OR HEMATOMA. VSS. DTR AT BEDSIDE.
--- NOTE | 2019-04-20 12:59 | NUR ---
R GROIN CDI, SOFT. NO S/S BLEEDING OR HEMATOMA. BP 148/81, HR PACED 60. 99% ON RA O2 SAT. FAMILY AT BEDSIDE. DR IQBAL HAS BEEN IN TO SPEAK W FAMILY AND PT.
--- NOTE | 2019-04-20 13:30 | NUR ---
R GROIN DRESSING CDI, GROIN SOFT. VOIDED 300 CC CLEAR YELLOW URINE TO URINAL. NO S/S BLEEDING OR HEMATOMA. DTR/ AT BEDSIDE. HR PACED, 62, BP 155/68, SAT 98%.
--- NOTE | 2019-04-20 14:00 | NUR ---
R GROIN SOFT, CDI. NO S/S BLEEDING OR HEMATOMA. HR PACED 63, BP 142/73. DTR AND AT BEDSIDE.
--- NOTE | 2019-04-20 14:20 | NUR ---
SONS AT BEDSIDE, BROUGHT PT ITALIAN FRIES. EATING WITHOUT ISSUE. HR PACED 62, BP 149/72, RR 14, SAT 99% RA.
--- NOTE | 2019-04-20 14:30 | NUR ---
R GROIN SOFT, CDI. NO S/S BLEEDING OR HEMATOMA. FAMILY AT BEDSIDE.
--- NOTE | 2019-04-20 15:00 | NUR ---
R GROIN CDI, SOFT, NO S/S BLEEDING OR HEMATOMA. BP 136/72 HR PACED AT 60, RR 15, SAT 98%.
--- NOTE | 2019-04-20 15:30 | NUR ---
REPOSITIONED TO HEAD OF BED, THEN RAISED HOB TO PT COMFORT. TURKEY SANDWICH AND ORANGE JUICE PROVIDED. R GROIN IS CDI, SOFT, NO S/S BLEEDING OR HEMATOMA. BP 124/65, HR PACED AT 61. RR 15, SAT 97% ON RA.
--- NOTE | 2019-04-20 15:58 | NUR ---
R GROIN REMAINS SOFT, CDI. NO S/S BLEEDING OR HEMATOMA. FAMILY AT BEDSIDE. HR PACED AT 63, BP 122/74, RR 15, SAT 97% ON RA.
--- NOTE | 2019-04-20 16:25 | NUR ---
R GROIN SOFT, CDI. NO S/S BLEEDING OR HEMATOMA. IV DC, TIP INTACT. MONITORING DC. AND SON ASSISTING TO DRESS.
--- NOTE | 2019-04-20 16:45 | NUR ---
R GROIN REMAINS SOFT, CDI AFTER DRESSING. NO S/S BLEEDING/HEMATOMA. DISCHARGE INSTRUCTIONS REVIEWED WITH PT, AND DTR.
--- NOTE | 2019-04-20 16:50 | NUR ---
DC HOME VIA WHEELCHAIR TO PRIVATE VEHICLE WITH SONS, DTR, AND . PT HAS ALL BELONGINGS.
--- NOTE | 2019-04-21 11:25 | OP ---
PATIENT NAME: ANNA LANTIGUA JR MEDICAL RECORD: [id number] :38 LOCATION:D.CAT ADMISSION DATE: SURGEON: RAN IQBAL MD DATE OF OPERATION: 04/20/2019 PROCEDURES: 1. PTCA stent RCA. 2. Selective coronary angiography. INDICATION: Angina and coronary artery disease. PROCEDURE PERFORMED: After informed consent was obtained and after a detailed description of the risks, benefits as well as alternative therapies, the patient elected to proceed with angiogram and angioplasty. The right femoral area was prepped and draped in normal sterile fashion. Right femoral artery was cannulated via modified Seldinger technique with placement of 7-Alban[place] sheath. All catheters exchanged through this sheath. FINDINGS: The right coronary has 70% to 80% stenosis times 2. IFR was abnormal at the time of last cardiac catheterization and stenting was undertaken with a 3.5 x 22 and 3.5 x 26, both [place] stents. Result was 0% residual stenosis. OVERALL IMPRESSION: Successful percutaneous transluminal coronary angioplasty stent of the right coronary artery going from 70% to 80% initial stenosis to 0% residual. TRANSINT:[id number] Voice Confirmation ID: [id number] DOCUMENT ID: [id number] RAN IQBAL MD at 1125 CC: [id number] DICTATION DATE: 04/20/19 1234 ROCK CRUSHER: 04/20/19 1651 DEP CLI 04/20/19 [facility] [address] [place] [address]
== END | disposition home or self-care (01) ==
LOC: D.CATH 08:47
PROVIDERS: ATTEND Internal Medicine Interventional Cardiology
DX: I25.119 Atherosclerotic heart disease of native coronary artery with unspecified angina pectoris (principal); I48.91 Unspecified atrial fibrillation; R07.89 Other chest pain; I10 Essential (primary) hypertension; Z95.0 Presence of cardiac pacemaker; E78.00 Pure hypercholesterolemia, unspecified; R94.30 Abnormal result of cardiovascular function study, unspecified; R55 Syncope and collapse; E78.5 Hyperlipidemia, unspecified; R00.2 Palpitations; R53.83 Other fatigue

== ENCOUNTER → 2019-07-23 11:33 | Outpatient (CLI) | payer MEDICARE ==
[2019-04-20 09:32] VITALS: BMI 28.4
--- NOTE | 2019-07-27 10:54 | EC ---
PATIENT:ANNA LANTIGUA JR DATE OF SERVICE: 07/23/19 SEX: M MEDICAL RECORD: [id number] DATE OF : 38 [facility] AGE OF PATIENT: 79 ADMISSION DATE: 07/23/19 REFERRING PHYSICIAN: INTERPRETING PHYSICIAN: AYLA GARCIA MD ECHOCARDIOGRAM REPORT ECHO CHARGES 4 ECHO COMPLETE Date: 07/23/19 CLINICAL DIAGNOSIS: DYSPNEA ON EXERTION ECHOCARDIOGRAPHIC MEASUREMENTS (adult normal given) AC root (d.<3.7cm) 4.3 cm LV Septum d (<1.2 cm> 1.2 cm Valve Excursion 1.9 cm LV Septum (systole) 1.4 cm Left Atria (s.<4.0cm> 4.0 cm LVPW d(<1.2cm) 1.4 cm RV (d.<2.3cm) 3.7 cm LVPW (sytole) 2.0 cm LV diastole(<5.6CM) 5.3 cm MV E-F(>70mm/sec) cm LV systole 3.8 cm LVOT Diameter 2.2 cm MV exc.(>10mm) 1.7 cm Est.ejection fraction (50-75%) % DOPPLER: LVIT cm/sec A 74.0 cm/sec E 41.0 cm/sec LA cm/sec RVSP 28 mmHg LVOT 96 cm/sec AOP1/2T 581 m/s Asc. Ao 144 cm/sec RVOT 67 cm/sec RA cm/sec PA 113 cm/sec AV Gradient Peak 8.26 mmHg AV Mean 4.16 mmHg AV Area 2.7 cm MV Gradient Peak 2.71 mmHg MV Mean 1.01 mmHg MV Area cm COMMENTS: Cordage Sales Representative: 2 JHONY ROBERTSON Senior Peoplesoft Developer: 3 Dr. Massey TAPE# PACS Pericardial Effusion N DATE OF SERVICE: Adequate 2D, color flow imaging, spectral Doppler, and M-Mode. Borderline LVH. LV internal dimension is normal. Wall motion is normal. EF greater than or equal to 55%. Aortic valve is tricuspid. No evidence of stenosis by Doppler interrogation. Mild AI by color flow imaging. Left atrium is upper limits of normal at 4.0 cm. Mitral valve shows no prolapse. Trace to mild MR. Right-sided chambers are grossly normal. Mild TR. 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 ECHOCARDIOGRAM REPORT [id number] ANNA LANTIGUA JR TRANSINT:[id number] Voice Confirmation ID: [id number] DOCUMENT ID: [id number] AYLA GARCIA MD at 1054 CC: [id number] DICTATION DATE: 07/23/19 1316 CONCESSION WORKER: 07/23/19 1509 DEP CLI 07/23/19 [place] [id number] [place] [id number]
== END | disposition home or self-care (01) ==
LOC: D.HCCECHO 11:30
PROVIDERS: ATTEND Internal Medicine Interventional Cardiology
DX: I10 Essential (primary) hypertension (principal)

== ENCOUNTER → 2019-08-22 10:52 | Outpatient (CLI) | payer MEDICARE ==
[2019-04-20 09:32] VITALS: BMI 28.4
== END | disposition home or self-care (01) ==
LOC: D.LABREF 10:52
PROVIDERS: ATTEND Internal Medicine Pulmonary Disease
DX: Z11.59 Encounter for screening for other viral diseases (principal)

== ENCOUNTER → 2019-08-24 08:12 | Outpatient (CLI) | payer MEDICARE ==
[2019-04-20 09:32] VITALS: BMI 28.4
== END | disposition home or self-care (01) ==
LOC: D.CT 06-11 09:30 → D.RT 06-11 09:30
PROVIDERS: ATTEND Internal Medicine Pulmonary Disease
DX: J84.10 Pulmonary fibrosis, unspecified (principal); Z11.59 Encounter for screening for other viral diseases

== ENCOUNTER → 2019-11-27 12:08 | Outpatient (CLI) | payer MEDICARE ==
[2019-04-20 09:32] VITALS: BMI 28.4
== END | disposition home or self-care (01) ==
LOC: D.RAD 12:08
PROVIDERS: ATTEND Family Medicine
DX: M54.5 Low back pain (principal)

== ENCOUNTER → 2019-12-03 10:53 | Outpatient (CLI) | payer MEDICARE ==
[2019-04-20 09:32] VITALS: BMI 28.4
== END | disposition home or self-care (01) ==
LOC: D.HCCECHO 10:53
PROVIDERS: ATTEND Internal Medicine Cardiovascular Disease
DX: I10 Essential (primary) hypertension (principal)

== ENCOUNTER → 2019-12-15 08:57 | Outpatient (CLI) | payer MEDICARE ==
[2019-04-20 09:32] VITALS: BMI 28.4
== END | disposition home or self-care (01) ==
LOC: D.CT 08:57
PROVIDERS: ATTEND Family Medicine
DX: M54.5 Low back pain (principal)

== ENCOUNTER → 2020-08-15 10:17 | Outpatient (CLI) | payer MEDICARE ==
[2020-04-26 07:53] VITALS: BMI 26.4
[~2020-08-15 10:17] MED LIST changes: +CIPRO250 MG PO; +DECADRON4 MG PO; +HYDRALAZINE HCL25 MG PO; -IPRATROPIUM BRO30 M1; +IPRATROPIUM BRO30 M1 INH; +LYRICA25 MG PO; +MUCINEX600 MG PO; +OMNICEF300 MG PO; +STROMECTOL 3 MG3 MG PO; +TESSALON PERLE100 MG PO; +VENTOLIN HFA [SP8 GM INH; +VITAMIN C PO; +VITAMIN D325 MC1 PO; +ZINC-220220 MG PO; +ZITHROMAX250 MG PO
== END | disposition home or self-care (01) ==
LOC: D.LAB 10:17
PROVIDERS: ATTEND Internal Medicine Pulmonary Disease
DX: J45.909 Unspecified asthma, uncomplicated (principal)

== ENCOUNTER → 2020-08-18 09:41 | Outpatient (CLI) | payer MEDICARE ==
[2020-04-26 07:53] VITALS: BMI 26.4
== END | disposition home or self-care (01) ==
LOC: D.RT 09:41
PROVIDERS: ATTEND Internal Medicine Pulmonary Disease
DX: J45.909 Unspecified asthma, uncomplicated (principal)